=== PATIENT | male | born 1940 | race Caucasian/White ===

== ENCOUNTER → 2020-02-12 12:18 | Outpatient (CLI) | payer MEDICARE, OTHER | END | disposition home or self-care (01) | LOC: D.US 12:18 | PROVIDERS: ATTEND Internal Medicine Cardiovascular Disease | DX: I65.23 Occlusion and stenosis of bilateral carotid arteries (principal) ==

== ENCOUNTER 2020-02-20 08:00 | Outpatient (CLI) | payer MEDICARE, OTHER ==
[2020-02-20] MEDS ORDERED: SYNTHROID50 MCG PO (10:07)
[2020-02-20] MEDS ORDERED: BETAPACE 80 MG80 MG PO (10:07)
[2020-02-20] MEDS ORDERED: PRAVASTATIN SOD10 MG PO (10:07)
[2020-02-20] MEDS ORDERED: PROSCAR5 MG PO (10:08)
[2020-02-20] MEDS ORDERED: INCRUSE ELLI62.5 MCG INH (10:08)
[2020-02-20] MEDS ORDERED: KENALOG 0.1 % 115 GM TOPICAL (10:08)
[2020-02-20] MEDS ORDERED: PLAVIX75 MG PO (10:09)
[2020-02-20] MEDS ORDERED: SYMBICORT 16010.2 GM INH (10:09)
[2020-02-20] MEDS ORDERED: ZESTRIL10 MG PO (10:09)
[2020-02-20] MEDS ORDERED: LASIX20 MG PO (10:10)
[2020-02-20 12:15] LABS: ALBUMIN 3.2 g/dL (3.4-5.0); ANION GAP 7.7 mmol/L (8-16); BILIRUBIN - TOTAL 1.28 mg/dL (0.2-1.3); CALCIUM 9.3 mg/dL (8.5-10.1); CREATININE - SERUM 1.2 mg/dL (0.6-1.3); POTASSIUM - SERUM 4.7 mmol/L (3.5-5.1); PROTEIN - SERUM 8.2 g/dL (6.4-8.2)
[2020-02-20 12:21] LABS: APTT 35.4 SECONDS (22.8-39.4); INR 1.09 (0.85-1.17); PROTIME 14.1 SECONDS (11.6-15.0)
[2020-02-20 12:28] LABS: HEMATOCRIT 41.7 % (42.0-54.0); HEMOGLOBIN 13.7 g/dL (13.5-17.5); MCH 32.5 pg (26.0-34.0); MCHC 32.9 g/dL (31.0-37.0); MCV 98.8 fL (80.0-100.0); RBC 4.22 10x6/uL (4.20-6.10); RDW 14.1 % (11.5-14.5); WBC 8.4 10x3/uL (4.8-10.8)
[2020-02-20 13:11] LABS: KETONE NEGATIVE (NEGATIVE); NITRITE NEGATIVE (NEGATIVE)
[2020-02-20 13:12] LABS: BACTERIA FEW /HPF (NONE SEEN); BILIRUBIN NEGATIVE (NEGATIVE); EPITHELIAL CELLS OCC /hpf (0-5); UROBILINOGEN 8 mg/dL (< 2); WHITE CELLS - URINE RARE HPF (0-1)
== END 2020-02-20 08:01 | disposition home or self-care (01) ==
LOC: D.PAN 08:00 → EDSTATUS 02-24 11:00 → D.SDCHOLD 02-24 11:00
PROVIDERS: ATTEND Thoracic Surgery (Cardiothoracic Vascular Surgery)
DX: R91.1 Solitary pulmonary nodule (principal)

== ENCOUNTER 2020-02-28 12:19 | Inpatient (IN) | payer MEDICARE, OTHER ==
[~2020-02-28] VITALS: Ht 188 cm; Wt 116.0 kg
[~2020-02-28 12:19] MED LIST: BETAPACE 80 MG80 MG PO; INCRUSE ELLI62.5 MCG INH; KENALOG 0.1 % 115 GM TOPICAL; LASIX20 MG PO; PLAVIX75 MG PO; PRAVASTATIN SOD10 MG PO; PROSCAR5 MG PO; SYMBICORT 16010.2 GM INH; SYNTHROID50 MCG PO; ZESTRIL10 MG PO
[2020-03-02 09:55] VITALS: BP 132/80; BMI 34.1
--- NOTE | 2020-03-02 10:40 | NUR ---
SPOKE WITH DR. CASANDRA LANDAVERDE'S NURSE, PLAN IS TO RESCHEDULE SURGERY FOR MONDAY AND ADMIT TO CVICU TODAY.
--- NOTE | 2020-03-02 12:35 | NUR ---
1230 REG DIET SERVED, WARM BLANKET FOR COMFORT PROVIDED.
[2020-03-02 13:09] LABS: BASOPHILS 0.4 % (0-2); EOSINOPHILS 4.5 % (0-7); HEMATOCRIT 38.4 % (42.0-54.0); HEMOGLOBIN 12.8 g/dL (13.5-17.5); IMMATURE GRANULOCYTES 0.1 % (0-5); LYMPHOCYTES 17.1 % (15-50); MCH 32.7 pg (26.0-34.0); MCHC 33.3 g/dL (31.0-37.0); MCV 98.2 fL (80.0-100.0); MEAN PLATELET VOLUME 10.9 fL (7.4-10.4); MONOCYTES 9.1 % (2-11); NEUTROPHILS 68.8 % (40-80); RBC 3.91 10x6/uL (4.20-6.10); RDW 14.1 % (11.5-14.5); WBC 7.3 10x3/uL (4.8-10.8)
[2020-03-02 13:26] LABS: PLATELET COUNT 103 10x3/uL (130-400)
[2020-03-02 13:45] LABS: ANION GAP 11.5 mmol/L (8-16); BILIRUBIN - TOTAL 1.41 mg/dL (0.2-1.3); CALCIUM 9.2 mg/dL (8.5-10.1); CARBON DIOXIDE 27.7 mmol/L (21.0-32.0); CREATININE - SERUM 1.4 mg/dL (0.6-1.3); POTASSIUM - SERUM 4.2 mmol/L (3.5-5.1); PROTEIN - SERUM 7.2 g/dL (6.4-8.2)
--- NOTE | 2020-03-02 14:36 | NUR ---
1430 ROOM CHECK, PT ATE 100% LUNCH WITH 240CC TEA CONCOUMED. STATES HAS VOIDED TWICE SINCE THIS MORNING.
--- NOTE | 2020-03-02 16:44 | NUR ---
6280 SUPPER TRAY SERVED.
--- NOTE | 2020-03-02 18:40 | NUR ---
PATIENT TRANSFERRED BY WHEELCHAIR TO CVICU, ROOM 04, BY WHEELCHAIR, IN STABLE CONDITION. PATIENT AWAKE, ALERT, ON O2. DENIES COMPLAINTS
[2020-03-02 21:00] VITALS: BP 114/77
[2020-03-02 22:00] VITALS: BP 117/81
[2020-03-02 23:00] VITALS: BP 109/70
[2020-03-02 23:54] LABS: INR 1.26 (0.85-1.17); PROTIME 15.7 SECONDS (11.6-15.0)
[2020-03-03] VITALS (15 sets, daily range): BP systolic 93–117; BP diastolic 46–77; Ht 188 cm; Wt 116.0 kg
[2020-03-03 05:07] LABS: BASOPHILS 0.2 % (0-2); HEMATOCRIT 36.3 % (42.0-54.0); IMMATURE GRANULOCYTES 1.4 % (0-5); LYMPHOCYTES 10.2 % (15-50); MCH 32.3 pg (26.0-34.0); MCHC 33.1 g/dL (31.0-37.0); MCV 97.6 fL (80.0-100.0); MEAN PLATELET VOLUME 11.4 fL (7.4-10.4); NEUTROPHILS 84.2 % (40-80); RBC 3.72 10x6/uL (4.20-6.10); RDW 13.9 % (11.5-14.5)
[2020-03-03 05:20] LABS: WBC 4.9 10x3/uL (4.8-10.8)
[2020-03-03 05:22] LABS: PLATELET ESTIMATE DECREASED
[2020-03-03 05:29] LABS: ALBUMIN 2.7 g/dL (3.4-5.0); ANION GAP 10.3 mmol/L (8-16); BILIRUBIN - TOTAL 1.05 mg/dL (0.2-1.3); CALCIUM 9.1 mg/dL (8.5-10.1); CARBON DIOXIDE 26.5 mmol/L (21.0-32.0); CREATININE - SERUM 1.4 mg/dL (0.6-1.3); POTASSIUM - SERUM 4.8 mmol/L (3.5-5.1); PROTEIN - SERUM 7.1 g/dL (6.4-8.2)
[2020-03-03 10:34] LABS: THYROID STIMULATING HORMONE 0.6 uIU/mL (0.36-3.74)
[2020-03-03 10:54] LABS: PLATELET COUNT 97 10x3/uL (130-400)
--- NOTE | 2020-03-03 11:01 | NUR ---
0700REPORT RECIEVED AND CARE ASSUMED OF PATIENT.. SEE FLOW SHEET FOR SHIFT ASSESMENT FINDINGS.. 0800 PT IS SLEEPING 0900 IN TO SEE PATIENT AND ASSIST PATIENT WITH [facility] MEDS GIVEN 0915 DR VALENTE HERE UDPATE IS GIVEN.. 0930 LAB IN TO DRAW BLLOD.. 1030 GONE FROM BEDSIDE
[2020-03-04] VITALS (28 sets, daily range): BP systolic 81–135; BP diastolic 42–82
[2020-03-04 05:13] LABS: BASOPHILS 0.1 % (0-2); EOSINOPHILS 0.6 % (0-7); HEMATOCRIT 34.2 % (42.0-54.0); HEMOGLOBIN 11.3 g/dL (13.5-17.5); IMMATURE GRANULOCYTES 0.2 % (0-5); LYMPHOCYTES 12.1 % (15-50); MCH 31.7 pg (26.0-34.0); MCV 95.8 fL (80.0-100.0); MEAN PLATELET VOLUME 11.4 fL (7.4-10.4); MONOCYTES 10.1 % (2-11); NEUTROPHILS 76.9 % (40-80); PLATELET COUNT 104 10x3/uL (130-400); RBC 3.57 10x6/uL (4.20-6.10); RDW 13.7 % (11.5-14.5)
--- NOTE | 2020-03-04 05:20 | NUR ---
CHG BATH GIVEN. COMPLETE LINEN CHANGE PROVIDED. CALL LIGHT IN REACH. WILL CONTINUE TO OBSERVE.
[2020-03-04 05:31] LABS: WBC 8.8 10x3/uL (4.8-10.8)
[2020-03-04 06:00] LABS: ALBUMIN 2.5 g/dL (3.4-5.0); ANION GAP 7.9 mmol/L (8-16); BILIRUBIN - TOTAL 1.1 mg/dL (0.2-1.3); CALCIUM 8.6 mg/dL (8.5-10.1); CARBON DIOXIDE 27.1 mmol/L (21.0-32.0); CREATININE - SERUM 1.2 mg/dL (0.6-1.3); PROTEIN - SERUM 6.5 g/dL (6.4-8.2)
--- NOTE | 2020-03-04 06:30 | NUR ---
PT OFF UNIT TO SURGERY VIA BED WITH SURGERY STAFF. FAMILY LEFT WITH PT. PT PRE-OPED PER ORDERS.
--- NOTE | 2020-03-04 07:30 | NUR ---
Pt not in room at this time.
--- NOTE | 2020-03-04 09:20 | NUR ---
Back from surgery. Opens eyes and follows simple commands. Currently on 8L O2 via simple mask. CT to left lateral side, connected to suction, no air leak noted. Left subclavian cvl in place with nitroglycerin at 16.67mcg/min and plasmolyte at 30ml/hr. Monterroso catheter in place. Right radial chrystal. Temp 97.0. Safety measures in place. Will continue to monitor.
--- NOTE | 2020-03-04 10:38 | NUR ---
Nutrition Follow-up: S/p VATS/bronch this AM. Diet: Clear Liquid -> Diabetic Wt: 261.3# (03/04) Labs noted: Glu 123, Alb 2.5 Meds noted: Humalog, Protonix, electrolyte protocol -ADAT as medically feasible; encourage PO intake and honor food preferences within diet restrictions. -Monitor wt. -RD following.
--- NOTE | 2020-03-04 11:16 | NUR ---
Right radial Jacy mckinley per Dr. Gilliam's order.
--- NOTE | 2020-03-04 15:12 | NUR ---
Pt with eyes closed. Arouses to voice. Reports 0/10 pain at this time. Instructed to use insentive spirometer. Pulls between 750-1000. No further needs at this time. Will continue to monitor.
--- NOTE | 2020-03-04 16:15 | NUR ---
Assisted up to chair. Tolerated well. Family at bedside. Call light in reach. No further needs at this time.
[2020-03-05] VITALS (24 sets, daily range): BP systolic 91–119; BP diastolic 61–83
[2020-03-05 05:50] LABS: BASOPHILS 0.2 % (0-2); EOSINOPHILS 1.9 % (0-7); HEMATOCRIT 38.2 % (42.0-54.0); HEMOGLOBIN 12.4 g/dL (13.5-17.5); IMMATURE GRANULOCYTES 0.5 % (0-5); LYMPHOCYTES 8.8 % (15-50); MCH 32.3 pg (26.0-34.0); MCHC 32.5 g/dL (31.0-37.0); MEAN PLATELET VOLUME 11.5 fL (7.4-10.4); MONOCYTES 13.7 % (2-11); NEUTROPHILS 74.9 % (40-80); PLATELET COUNT 96 10x3/uL (130-400); RBC 3.84 10x6/uL (4.20-6.10); RDW 14.2 % (11.5-14.5); WBC 8.3 10x3/uL (4.8-10.8)
[2020-03-05 06:13] LABS: MCV 99.5 fL (80.0-100.0)
[2020-03-05 06:14] LABS: ALBUMIN 2.7 g/dL (3.4-5.0); ANION GAP 6.9 mmol/L (8-16); BILIRUBIN - TOTAL 1.12 mg/dL (0.2-1.3); CALCIUM 8.8 mg/dL (8.5-10.1); CARBON DIOXIDE 29.6 mmol/L (21.0-32.0); CREATININE - SERUM 1.3 mg/dL (0.6-1.3); POTASSIUM - SERUM 4.5 mmol/L (3.5-5.1)
--- NOTE | 2020-03-05 09:33 | OP ---
PATIENT NAME: BECKY GAVIRIA MEDICAL RECORD: [id number] :44 LOCATION:[facility] ADMISSION DATE:03/02/20 SURGEON: CHRIS GUAJARDO MD DATE OF OPERATION: 03/04/2020 SURGEON: Chris Guajardo MD PROCEDURE PERFORMED: Left video-assisted thoracoscopic surgery with wedge resection for lung biopsy. PREOPERATIVE DIAGNOSIS: Pulmonary fibrosis. POSTOPERATIVE DIAGNOSIS: Interstitial lung disease. ANESTHESIA: Double lumen general endotracheal anesthesia. ESTIMATED BLOOD LOSS: Minimal. COMPLICATIONS: None. SPECIMENS: Tissue fresh to pathology. CONDITION: Stable. DISPOSITION: CV ICU. OPERATIVE FINDINGS: The most involved area appeared to be the diaphragmatic surface, particularly the costophrenic angle of the left lower lobe anteriorly. This was removed with a wedge resection using thoracoscopic visualization. INDICATIONS: Progressive dyspnea despite medical therapy. PROCEDURE IN DETAIL: The patient was brought to the operating suite. Double lumen general endotracheal anesthesia was placed. Position was confirmed with bronchoscopy. The patient turned to the right lateral decubitus position with appropriate padding. The patient was prepped and draped. The thoracoscopic port was made at approximately the anterior axillary line, visualizing all portions of the lung and possibly some apical adhesions inferiorly. The lung was free from the diaphragm, posterior working port was made. The lung was grasped and another working port was made just below the tip of the scapula where a stapling device was used to divide the wedge resection. The specimen was removed through the chest wall carefully and thorough irrigation was undertaken. Hemostasis was ensured. A chest tube was placed through the anterior working port up to the apex, sutured in place. Lung was reinflated. Wounds were closed with muscle layer, subcutaneous and subcuticular. The patient is stable to CV ICU. TRANSINT:[id number] Voice Confirmation ID: [id number] DOCUMENT ID: [id number] OPERATIVE REPORT [id number] EVERETTEKAMALJITBECKYCHRIS DEWEY MD at 0933 CC: RAY HUGHES MD [id number] DICTATION DATE: 03/04/20 1633 AUTOMATION QA LEAD: 03/05/20 0134 ADM IN [facility] [address] [place] [address]
[2020-03-05 11:49] LABS: PLATELET ESTIMATE DECREASED; ROULEAUX OCC
--- NOTE | 2020-03-05 14:00 | NUR ---
CHANGED CT DRESSING USING STERILE TECHNIQUE. TOLERATED WELL.
[2020-03-06] VITALS (19 sets, daily range): BP systolic 101–122; BP diastolic 56–81
--- NOTE | 2020-03-06 00:10 | MORECARE ---
CASE MANAGEMENT DISCHARGE SUMMARY PATIENT: BECKY GAVIRIA UNIT: [id number] ADM DATE: 03/02/20 AGE: 79 : 42 SEX: M [facility] AUTHOR: EHSAN GARCIA PHYSICIAN: REFERRING PHYSICIAN: HALLE GUAJARDO MD DATE OF SERVICE: 03/06/20 Discharge Plan Patient Name: BECKY GAVIRIA Facility: [facility]:[place] : 1940 Planned Disposition: Home Anticipated Discharge Date: Discharge Date: Expected LOS: Initial Reviewer: [email or web address] Initial Review Date: 03/02/2020 Generated: 03/06/20 1:09 am DCPIA - Discharge Planning Initial Assessment Updated by [email or web address]: Francia Quintero on 03/06/20 12:06 am * Is the patient Alert and Oriented? Yes * How many steps to enter\exit or inside your home? * PCP prachi medina * [facility] * Preadmission Environment Home with Family * ADLs Independent * Equipment Oxygen * Other Equipment home / portable 02 * List name and contact numbers for known caregivers / representatives who currently or will assist patient after discharge: Guera Gaviria - spouse - [phone] * Verbal permission to speak to the caregivers and representatives has been obtained from the patient. Yes * Community resources currently utilized None * Additional services required to return to the preadmission environment? No * Can the patient safely return to the preadmission environment? Yes * Has this patient been hospitalized within the prior 30 days at any hospital? No External Providers [facility] Next Contact Date: Service Request Date: Service Type: Resolution: Reviewer: Comments: Patient Name: BECKY GAVIRIA Page [phone] at 0010 All edits/amendments must be made on the electronic document DICTATION DATE: 03/06/209 BEEF GRADER: SALVADOR 03/06/209 RPT#: [id number] DC DATE: STATUS: ADM IN [facility] [address] [place] [address] END OF REPORT
--- NOTE | 2020-03-06 00:16 | MORECARE ---
CASE MANAGEMENT DISCHARGE SUMMARY PATIENT: BECKY GAVIRIA UNIT: [id number] ADM DATE: 03/02/20 AGE: 79 : 42 SEX: M ROOM/BED: D[facility] AUTHOR: RADHA,DOC PHYSICIAN: REFERRING PHYSICIAN: HALLE GUAJARDO MD DATE OF SERVICE: 03/06/20 Discharge Plan Patient Name: BECKY GAVIRIA Facility: [facility]:[place] : 1940 Planned Disposition: Home Anticipated Discharge Date: Discharge Date: Expected LOS: Initial Reviewer: [email or web address] Initial Review Date: 03/02/2020 Generated: 03/06/20 1:16 am Comments DCP- Discharge Planning Updated by [email or web address]: Francia Quintero on 03/05/20 11:[address] Patient Name: BECKY GAVIRIA Admission Status: Elective Accout number: [id number] Admission Date: 03-02-2020 : 1940 Admission Diagnosis:INTERSTITIAL PULMONARY DISEASE, UNSPECIFIED Attending: HALLE GUAJARDO Current LOS: 4 Anticipated DC Date: Planned Disposition: Home Primary Insurance: MEDICARE A & B Discharge Planning Comments: CM met with patient to complete initial dc planning assessment. CM educated patient on the CM role and verbal consent given by patient to complete assessment. Patient lives at home with family. Patient is independent. At discharge patient plans to return home and feels this is a safe discharge. CM discussed availability of home health, rehab services, and medical equipment. Patient has home / portable 02 with [facility]. Patient wanting Nebulizer and Rollator. MARTHA completed. CM called and spoke with Gabriel @ [facility] and faxed order. Gabriel stated that she has already received order for DuoNeb. Gabriel stated to let her know when patient is going to discharge. Patient will have family to transport home. Patient denied known discharge needs at this time. CM will continue to follow and will assist as needed with dc plans/needs. Account Development Representative: Francia Quintero DCPIA - Discharge Planning Initial Assessment Updated by [email or web address]: Francia Quintero on 03/06/20 12:06 am * Is the patient Alert and Oriented? Yes * How many steps to enter\exit or inside your home? * PCP prachi medina * [facility] * Preadmission Environment Home with Family * ADLs Independent * Equipment Oxygen * Other Equipment home / portable 02 * List name and contact numbers for known caregivers / representatives who currently or will assist patient after discharge: Guera Gaviria - spouse - [phone] * Verbal permission to speak to the caregivers and representatives has been obtained from the patient. Yes * Community resources currently utilized None * Additional services required to return to the preadmission environment? No * Can the patient safely return to the preadmission environment? Yes * Has this patient been hospitalized within the prior 30 days at any hospital? No Last DP export: 03/05/20 11:10 p Patient Name: BECKY GAVIRIA Page [id number] at 0016 All edits/amendments must be made on the electronic document DICTATION DATE: 03/06/2015 FORESTRY AIDE: SALVADOR 03/06/2015 RPT#: [id number] DC DATE: STATUS: ADM IN [facility] [address] [place] [address] END OF REPORT
[2020-03-06 06:15] LABS: HEMATOCRIT 37.3 % (42.0-54.0); HEMOGLOBIN 12.1 g/dL (13.5-17.5); MCH 32.4 pg (26.0-34.0); MCHC 32.4 g/dL (31.0-37.0); MCV 99.7 fL (80.0-100.0); MEAN PLATELET VOLUME 11.4 fL (7.4-10.4); PLATELET COUNT 91 10x3/uL (130-400); RBC 3.74 10x6/uL (4.20-6.10); WBC 9.3 10x3/uL (4.8-10.8)
[2020-03-06 06:31] LABS: ALBUMIN 2.5 g/dL (3.4-5.0); ANION GAP 4.5 mmol/L (8-16); BILIRUBIN - TOTAL 0.95 mg/dL (0.2-1.3); CALCIUM 8.7 mg/dL (8.5-10.1); CARBON DIOXIDE 31.9 mmol/L (21.0-32.0); CREATININE - SERUM 1.2 mg/dL (0.6-1.3); POTASSIUM - SERUM 4.4 mmol/L (3.5-5.1); PROTEIN - SERUM 6.7 g/dL (6.4-8.2)
[2020-03-06 06:51] LABS: PLATELET ESTIMATE NORMAL
--- NOTE | 2020-03-06 07:20 | NUR ---
Shift report received. Pt sitting up in chair. Denies having pain at this time. CT X 1 to left lateral chest to water seal, serosanguinous drainage noted. On 3L O2 via NC. No fever noted. Left sub cvl saline locked. LUCERO hose on bilateral LE. Safety measures in place. Call light in reach. Will continue to monitor.
[2020-03-06] MEDS ORDERED: SINGULAIR10 MG PO (09:19)
[2020-03-06] MEDS ORDERED: MUCINEX DM ER1 EAC1 PO (09:19)
[2020-03-06 09:37] LABS: BASOPHILS 0.1 % (0-2); EOSINOPHILS 1.7 % (0-7); HEMATOCRIT 40.1 % (42.0-54.0); HEMOGLOBIN 13.2 g/dL (13.5-17.5); IMMATURE GRANULOCYTES 0.3 % (0-5); LYMPHOCYTES 6.5 % (15-50); MCH 32.9 pg (26.0-34.0); MCHC 32.9 g/dL (31.0-37.0); MEAN PLATELET VOLUME 11.5 fL (7.4-10.4); MONOCYTES 10.9 % (2-11); NEUTROPHILS 80.5 % (40-80); PLATELET COUNT 109 10x3/uL (130-400); RBC 4.01 10x6/uL (4.20-6.10); RDW 13.9 % (11.5-14.5)
[2020-03-06 09:38] LABS: WBC 12.1 10x3/uL (4.8-10.8)
--- NOTE | 2020-03-06 09:39 | NUR ---
Ambulated about 60ft with physical therapy. O2 dropped to 77%. Recovered once back in chair. Continues on 3L via nc. Spouse at bedside. Will continue to monitor.
[2020-03-06 09:55] LABS: ALBUMIN 2.7 g/dL (3.4-5.0); ANION GAP 7.4 mmol/L (8-16); BILIRUBIN - TOTAL 1.23 mg/dL (0.2-1.3); CALCIUM 9.1 mg/dL (8.5-10.1); CARBON DIOXIDE 30.4 mmol/L (21.0-32.0); CREATININE - SERUM 1.3 mg/dL (0.6-1.3); POTASSIUM - SERUM 4.8 mmol/L (3.5-5.1); PROTEIN - SERUM 7.4 g/dL (6.4-8.2)
--- NOTE | 2020-03-06 10:21 | NUR ---
CT connected to suction per Dr. Gilliam's order.
--- NOTE | 2020-03-06 13:00 | NUR ---
Appears asleep in chair. Ate about 20% of lunch. VSS. Call light in reach. Will continue to monitor.
--- NOTE | 2020-03-06 13:06 | NUR ---
NUTRITION F/U PT UP IN ROOM, FAMILY AT BEDSIDE. REPORTS NOT BEING HUNGRY AT LUNCH TODAY. DID EAT PUDDING. WILL CONTINUE TO PROVIDE DIABETIC DIET, MONITOR PO INTAKE. RD FOLLOWING
--- NOTE | 2020-03-06 15:00 | NUR ---
Resting comfortably in chair. VSS. Denies having pain at this time. CT x 1 to 20cm suction. No fever noted. Will continue to monitor.
--- NOTE | 2020-03-06 18:00 | NUR ---
Ambulated back to bed. Call light in reach. CT continues to 20cm suction. No further needs at this time.
[2020-03-07] VITALS (23 sets, daily range): BP systolic 101–127; BP diastolic 61–82
[2020-03-07 05:46] LABS: BASOPHILS 0 % (0-2); HEMATOCRIT 35.2 % (42.0-54.0); HEMOGLOBIN 11.5 g/dL (13.5-17.5); IMMATURE GRANULOCYTES 0.5 % (0-5); LYMPHOCYTES 11.2 % (15-50); MCH 32.1 pg (26.0-34.0); MCHC 32.7 g/dL (31.0-37.0); MCV 98.3 fL (80.0-100.0); MEAN PLATELET VOLUME 11.4 fL (7.4-10.4); MONOCYTES 10.4 % (2-11); NEUTROPHILS 74.9 % (40-80); PLATELET COUNT 97 10x3/uL (130-400); RBC 3.58 10x6/uL (4.20-6.10); RDW 13.7 % (11.5-14.5)
[2020-03-07 05:56] LABS: WBC 8.4 10x3/uL (4.8-10.8)
[2020-03-07 06:07] LABS: ALBUMIN 2.4 g/dL (3.4-5.0); ANION GAP 5.5 mmol/L (8-16); BILIRUBIN - TOTAL 1.34 mg/dL (0.2-1.3); CALCIUM 8.8 mg/dL (8.5-10.1); CREATININE - SERUM 1.2 mg/dL (0.6-1.3); POTASSIUM - SERUM 4.5 mmol/L (3.5-5.1); PROTEIN - SERUM 6.5 g/dL (6.4-8.2)
--- NOTE | 2020-03-07 08:44 | NUR ---
Assisted up to chair. Tolerated well. CT to left side on 20cm suction, serous drainage noted. On 2L O2 via nc. Dressing to left upper back c/d/i. LUCERO'S on bilateral LE. SCD's off at this time. Call light in reach. Urinal in reach. Meal tray set up. Will continue to monitor.
--- NOTE | 2020-03-07 13:30 | NUR ---
Ambulated to bathroom. No bm at this time. Assisted back to bed. Denies further needs at this time. Left side chest tube remains in place. will continue to monitor.
--- NOTE | 2020-03-07 19:15 | NUR ---
PT REC'D TO CARE, MONITORS/ALARMS ON. AT BS. SEE TRACK OILER. C/L IN REACH.
--- NOTE | 2020-03-07 21:30 | NUR ---
L CT DSG CHANGED PER MD ORDER. PT ASSISTED UP TO CHAIR X 1 ASSIST FOR BATH AND PM CARE. HAIR WASHED. GOWN AND LINENS CHANGED. ORAL CARE DONE. PT REMAINS UP IN CHAIR. ALARMS ON AND C/L IN REACH.
--- NOTE | 2020-03-07 22:45 | NUR ---
PT ASSISTED BACK TO BED. ALARMS ON AND C/L IN REACH.
[2020-03-08] VITALS (24 sets, daily range): BP systolic 107–132; BP diastolic 63–90
[2020-03-08 06:20] LABS: BASOPHILS 0.1 % (0-2); EOSINOPHILS 4.8 % (0-7); HEMATOCRIT 34.9 % (42.0-54.0); HEMOGLOBIN 11.6 g/dL (13.5-17.5); IMMATURE GRANULOCYTES 0.3 % (0-5); MCH 32.6 pg (26.0-34.0); MCHC 33.2 g/dL (31.0-37.0); MEAN PLATELET VOLUME 11.1 fL (7.4-10.4); MONOCYTES 12.7 % (2-11); NEUTROPHILS 66.1 % (40-80); PLATELET COUNT 91 10x3/uL (130-400); RBC 3.56 10x6/uL (4.20-6.10); RDW 13.8 % (11.5-14.5); WBC 6.9 10x3/uL (4.8-10.8)
[2020-03-08 06:32] LABS: ALBUMIN 2.3 g/dL (3.4-5.0); ALKALINE PHOSPHATASE 54 U/L (30-120); ALT (SGPT) 22 U/L (10-68); CALC OSMOLALITY 279 mosm/kg (275-300); CALCIUM 8.9 mg/dL (8.5-10.1); CARBON DIOXIDE 32.3 mmol/L (21.0-32.0); CHLORIDE - SERUM 105 mmol/L (98-107); GLUCOSE 107 mg/dL (74-106); POTASSIUM - SERUM 4.3 mmol/L (3.5-5.1); PROTEIN - SERUM 6.4 g/dL (6.4-8.2); SODIUM 138 mmol/L (136-145); UREA NITROGEN 24 mg/dL (7-18); eGFR NON AFRICAN AMERICAN 77 mL/min (90-120)
[2020-03-08 06:49] LABS: PLATELET ESTIMATE DECREASED
--- NOTE | 2020-03-08 07:30 | NUR ---
PT SITTING UP IN CHAIR, SANDRA KEARNS SERVED, NO NEEDS VOICED AT THIS TIME, CALL LIGHT IN REACH, WILL MONITOR
--- NOTE | 2020-03-08 11:00 | NUR ---
assisted pt up to toilet and back to chair, tolerated well, call light in reach, will monitor
--- NOTE | 2020-03-08 11:35 | NUR ---
DR GUAJARDO HERE SEEING PATIENT
--- NOTE | 2020-03-08 12:30 | NUR ---
CHEST TUBE PUT TO WATER SEAL PER DR GUAJARDO
--- NOTE | 2020-03-08 13:45 | NUR ---
PT UP AMBULATING IN HALLS WITH THERAPY
--- NOTE | 2020-03-08 17:12 | NUR ---
dinner tray served, pt sitting up eating, at bedside, will monitor
--- NOTE | 2020-03-08 21:28 | NUR ---
PT SITTING UP IN CHAIR, NO ACUTE DISTRESS NOTED. WILL CONTINUE TO MONITOR.
[2020-03-09] VITALS (25 sets, daily range): BP systolic 101–130; BP diastolic 64–95
[2020-03-09 05:49] LABS: BASOPHILS 0.5 % (0-2); EOSINOPHILS 6.1 % (0-7); HEMATOCRIT 35.9 % (42.0-54.0); HEMOGLOBIN 11.6 g/dL (13.5-17.5); IMMATURE GRANULOCYTES 0.3 % (0-5); LYMPHOCYTES 15.2 % (15-50); MCH 31.7 pg (26.0-34.0); MCHC 32.3 g/dL (31.0-37.0); MCV 98.1 fL (80.0-100.0); NEUTROPHILS 61.9 % (40-80); PLATELET COUNT 105 10x3/uL (130-400); RBC 3.66 10x6/uL (4.20-6.10); RDW 13.8 % (11.5-14.5); WBC 6.4 10x3/uL (4.8-10.8)
[2020-03-09 06:10] LABS: ALBUMIN 2.3 g/dL (3.4-5.0); ANION GAP 5.1 mmol/L (8-16); BILIRUBIN - TOTAL 1.34 mg/dL (0.2-1.3); CALCIUM 8.8 mg/dL (8.5-10.1); CARBON DIOXIDE 30.9 mmol/L (21.0-32.0); CREATININE - SERUM 1.1 mg/dL (0.6-1.3); MAGNESIUM - SERUM 1.7 mg/dL (1.8-2.4); PHOSPHOROUS 2.6 mg/dL (2.5-4.9); PROTEIN - SERUM 6.4 g/dL (6.4-8.2)
--- NOTE | 2020-03-09 07:30 | NUR ---
pt sitting up in chair, breakfast tray served, denies needs or pain at this time, call light in reach, will monitor
--- NOTE | 2020-03-09 09:15 | NUR ---
FAMILY AT BEDSIDE
--- NOTE | 2020-03-09 10:10 | NUR ---
PT UP TO TOILET AND BACK TO BED, TOLERATED WELL, AT BEDSIDE, CALL LIGHT IN REACH, WILL MONITOR
--- NOTE | 2020-03-09 11:09 | NUR ---
Nutrition Follow-up: POD 5 VATS. Noted plans to d/c soon. Diet: Diabetic PO intake: 50-100% Wt: 260.1# (03/09) Labs noted: Na 135, Mg 1.7, Alb 2.3 Meds noted: Senokot, Humalog, Protonix, electrolyte protocol -RD following.
--- NOTE | 2020-03-09 11:30 | NUR ---
DR ANGELO HERE SEEING PATIENT
--- NOTE | 2020-03-09 12:10 | NUR ---
LUNCH TRAY SERVED, SITTING UP IN CHAIR
--- NOTE | 2020-03-09 13:00 | NUR ---
assisted pt back to bed, tolerated well, call light in reach, will monitor
--- NOTE | 2020-03-09 15:10 | NUR ---
DR. GUAJARDO AT BEDSIDE, CHEST TUBE PULLED, PT TOLERATED WELL, DRESSING IN PLACE, CDI, NO NEEDS VOICED AT THIS TIME, CALL LIGHT IN REACH, WILL MONITOR
--- NOTE | 2020-03-09 17:00 | NUR ---
dinner tray served, pt sitting up in bed feeding self, at bedside
[2020-03-10] VITALS (13 sets, daily range): BP systolic 106–133; BP diastolic 65–88
[2020-03-10 05:53] LABS: BASOPHILS 0.3 % (0-2); EOSINOPHILS 6.2 % (0-7); HEMATOCRIT 36.6 % (42.0-54.0); IMMATURE GRANULOCYTES 0.4 % (0-5); LYMPHOCYTES 13.4 % (15-50); MCH 32.1 pg (26.0-34.0); MCHC 32.8 g/dL (31.0-37.0); MCV 97.9 fL (80.0-100.0); MEAN PLATELET VOLUME 11.3 fL (7.4-10.4); MONOCYTES 14.7 % (2-11); PLATELET COUNT 112 10x3/uL (130-400); RBC 3.74 10x6/uL (4.20-6.10); RDW 13.6 % (11.5-14.5)
[2020-03-10 06:16] LABS: ALBUMIN 2.3 g/dL (3.4-5.0); ANION GAP 7.1 mmol/L (8-16); BILIRUBIN - TOTAL 1.08 mg/dL (0.2-1.3); CALCIUM 8.8 mg/dL (8.5-10.1); CARBON DIOXIDE 32.3 mmol/L (21.0-32.0); CREATININE - SERUM 1.1 mg/dL (0.6-1.3); POTASSIUM - SERUM 4.4 mmol/L (3.5-5.1); PROTEIN - SERUM 6.7 g/dL (6.4-8.2)
--- NOTE | 2020-03-10 07:45 | NUR ---
laying in bed resting comfortable, denies pain at this time, breakfast tray served, call light in reach, will monitor
--- NOTE | 2020-03-10 09:30 | NUR ---
pt ambulating with therapy at this time
--- NOTE | 2020-03-10 11:00 | NUR ---
CVL DC'D AT THIS TIME, CATHETER INTACT
[2020-03-10] MEDS ORDERED: ATROVENT 0.02%2.5 ML UPD (11:01)
--- NOTE | 2020-03-10 12:00 | NUR ---
PT DISCHARGED HOME VIA WHEELCHAIR AT THIS TIME WITH HOME O2, DISCHARGE INSTRUCTIONS GIVEN AND MEDICATIONS EXPLAINED, PT VERBALZIES UNDERSTANDING, FOLLOW UP APPTS MADE, DR IVÁN LANDAVERDE EXPLAINED DISCHARGE INSTRUCTIONS , NO DISTRESS NOTED AT THIS TIME
--- NOTE | 2020-03-11 09:14 | MORECARE ---
CASE MANAGEMENT DISCHARGE SUMMARY PATIENT: BECKY GAVIRIA UNIT: [id number] ADM DATE: 03/02/20 AGE: 79 : 42 SEX: M ROOM/BED: D.[facility] AUTHOR: EHSAN GARCIA PHYSICIAN: REFERRING PHYSICIAN: HALLE GUAJARDO MD DATE OF SERVICE: 03/11/20 Discharge Plan Patient Name: BECKY GAVIRIA Facility: [facility]:[place] : 1940 Planned Disposition: Home Anticipated Discharge Date: Discharge Date: 03/10/2020 Expected LOS: Initial Reviewer: [email or web address] Initial Review Date: 03/02/2020 Generated: 03/11/20 10:14 am DCP- Discharge Planning Updated by [email or web address]: Francia Quintero on 03/05/20 11:[address] Patient Name: BECKY GAVIRIA Admission Status: Elective Accout number: [id number] Admission Date: 03-02-2020 : 1940 Admission Diagnosis:INTERSTITIAL PULMONARY DISEASE, UNSPECIFIED Attending: HALLE GUAJARDO Current LOS: 4 Anticipated DC Date: Planned Disposition: Home Primary Insurance: MEDICARE A & B Discharge Planning Comments: CM met with patient to complete initial dc planning assessment. CM educated patient on the CM role and verbal consent given by patient to complete assessment. Patient lives at home with family. Patient is independent. At discharge patient plans to return home and feels this is a safe discharge. CM discussed availability of home health, rehab services, and medical equipment. Patient has home / portable 02 with [facility]. Patient wanting Nebulizer and Rollator. MARTHA completed. CM called and spoke with Gabriel @ [facility] and faxed order. Gabriel stated that she has already received order for DuoNeb. Gabriel stated to let her know when patient is going to discharge. Patient will have family to transport home. Patient denied known discharge needs at this time. CM will continue to follow and will assist as needed with dc plans/needs. Ordnance Truck Installation Mechanic: Francia Quintero DCPIA - Discharge Planning Initial Assessment Updated by [email or web address]: Francia Quintero on 03/06/20 12:06 am * Is the patient Alert and Oriented? Yes * How many steps to enter\exit or inside your home? * PCP prachi medina * [facility] * Preadmission Environment Home with Family * ADLs Independent * Equipment Oxygen * Other Equipment home / portable 02 * List name and contact numbers for known caregivers / representatives who currently or will assist patient after discharge: Guera Gaviria - spouse - [phone] * Verbal permission to speak to the caregivers and representatives has been obtained from the patient. Yes * Community resources currently utilized None * Additional services required to return to the preadmission environment? No * Can the patient safely return to the preadmission environment? Yes * Has this patient been hospitalized within the prior 30 days at any hospital? No Last DP export: 03/05/20 11:16 p Patient Name: BECKY GAVIRIA Page [phone] at 0914 All edits/amendments must be made on the electronic document DICTATION DATE: 03/11/20913 FINANCIAL PLANNING ADVISER: SALVADOR 03/11/20913 RPT#: [id number] DC DATE:03/10/20 STATUS: DIS IN [facility] [address] [place] [address] END OF REPORT
--- NOTE | 2020-03-11 10:07 | MORECARE ---
CASE MANAGEMENT DISCHARGE SUMMARY PATIENT: BECKY GAVIRIA UNIT: [id number] ADM DATE: 03/02/20 AGE: 79 : 42 SEX: M ROOM/BED: D[facility] AUTHOR: EHSAN GARCIA PHYSICIAN: REFERRING PHYSICIAN: HALLE GUAJARDO MD DATE OF SERVICE: 03/11/20 Discharge Plan Patient Name: BECKY GAVIRIA Facility: [facility]:[place] : 1940 Planned Disposition: Home Anticipated Discharge Date: Discharge Date: 03/10/2020 Expected LOS: Initial Reviewer: [email or web address] Initial Review Date: 03/02/2020 Generated: 03/11/20 11:06 am Comments DCP- Discharge Planning Updated by [email or web address]: Romy Gutierrez on 03/11/20 8:[address] Patient Name: BECKY GAVIRIA Encounter No: [id number] : 1940 Primary Insurance: MEDICARE A & B Anticipated DC Date: Planned Disposition: Home External Planned Provider: : Late Entry for 03/09/20 ~ 13:45. DCP follow-up note: Patient in agreement with discharge plan. No changes to plan. Rollator and Nebulizer in patient room. CM spoke with Gabriel from [facility] that stated Neb meds were shipped to patient's and should be there waiting for him. Patient signed DC IMM. Copy on chart. Case management will follow and assist as needed. Romy Gutierrez DCP- Discharge Planning Updated by [email or web address]: Francia Quintero on 03/05/20 11:[address] Patient Name: BECKY GAVIRIA Admission Status: Elective Accout number: [id number] Admission Date: 03-02-2020 : 1940 Admission Diagnosis:INTERSTITIAL PULMONARY DISEASE, UNSPECIFIED Attending: HALLE GUAJARDO Current LOS: 4 Anticipated DC Date: Planned Disposition: Home Primary Insurance: MEDICARE A & B Discharge Planning Comments: CM met with patient to complete initial dc planning assessment. CM educated patient on the CM role and verbal consent given by patient to complete assessment. Patient lives at home with family. Patient is independent. At discharge patient plans to return home and feels this is a safe discharge. CM discussed availability of home health, rehab services, and medical equipment. Patient has home / portable 02 with [facility]. Patient wanting Nebulizer and Rollator. MARTHA completed. CM called and spoke with Gabriel @ [facility] and faxed order. Gabriel stated that she has already received order for DuoNeb. Gabriel stated to let her know when patient is going to discharge. Patient will have family to transport home. Patient denied known discharge needs at this time. CM will continue to follow and will assist as needed with dc plans/needs. Medical Scribe: Francia Quintero DCPIA - Discharge Planning Initial Assessment Updated by [email or web address]: Francia Quintero on 03/06/20 12:06 am * Is the patient Alert and Oriented? Yes * How many steps to enter\exit or inside your home? * PCP prachi medina * [facility] * Preadmission Environment Home with Family * ADLs Independent * Equipment Oxygen * Other Equipment home / portable 02 * List name and contact numbers for known caregivers / representatives who currently or will assist patient after discharge: Guera Gaviria - spouse - [phone] * Verbal permission to speak to the caregivers and representatives has been obtained from the patient. Yes * Community resources currently utilized None * Additional services required to return to the preadmission environment? No * Can the patient safely return to the preadmission environment? Yes * Has this patient been hospitalized within the prior 30 days at any hospital? No Coverage Notice Reviewer: [id number] Elijah Gutierrez Notice Issued Date-Time: 03/09/2020 13:45 Notice Type: IM Discharge Notice Notice Delivered To: Patient Relationship to Patient: Self Feed Crusher Operator Name: Delivery Method: HAND - Hand Delivered Franci Days: Prior Verbal Notification: Recipient Understood Notice: Yes Recipient Signature: Yes Med Rec Note Co-signed by Attending: Coverage Notice Comment: Last DP export: 03/11/20 8:14 a Patient Name: BECKY GAVIRIA Page [id number] at 1007 All edits/amendments must be made on the electronic document DICTATION DATE: 03/11/20 1006 WATER ATTENDANT: SALVADOR 03/11/20 1006 RPT#: [id number] DC DATE:03/10/20 STATUS: DIS IN [facility] [address] [place] [address] END OF REPORT
== END 2020-03-10 12:00 | disposition home or self-care (01) | DRG 164 ==
LOC: D.CVICU 03-02 07:53 → D.SDCHOLD 03-02 07:53 → D.CVICU 03-02 18:50
PROVIDERS: Family Medicine; Family Medicine Adult Medicine; Internal Medicine Hematology & Oncology; Internal Medicine Pulmonary Disease; ADMIT Thoracic Surgery (Cardiothoracic Vascular Surgery); ATTEND Thoracic Surgery (Cardiothoracic Vascular Surgery)
PROC: 0BTJ4ZZ Resection of Left Lower Lung Lobe, Percutaneous Endoscopic Approach (ICD-10-PCS; principal; 2020-03-04 07:30)
DX: J84.10 Pulmonary fibrosis, unspecified (principal); N17.9 Acute kidney failure, unspecified; G61.0 Guillain-Barre syndrome; I50.42 Chronic combined systolic (congestive) and diastolic (congestive) heart failure; K76.6 Portal hypertension; I48.19 Other persistent atrial fibrillation; J93.9 Pneumothorax, unspecified; J45.909 Unspecified asthma, uncomplicated; D64.9 Anemia, unspecified; K21.9 Gastro-esophageal reflux disease without esophagitis; E03.9 Hypothyroidism, unspecified; K76.0 Fatty (change of) liver, not elsewhere classified; Z99.81 Dependence on supplemental oxygen; M19.90 Unspecified osteoarthritis, unspecified site; G47.33 Obstructive sleep apnea (adult) (pediatric); I27.20 Pulmonary hypertension, unspecified; E11.9 Type 2 diabetes mellitus without complications; K74.60 Unspecified cirrhosis of liver; K86.9 Disease of pancreas, unspecified; N40.0 Benign prostatic hyperplasia without lower urinary tract symptoms; E78.5 Hyperlipidemia, unspecified; J47.9 Bronchiectasis, uncomplicated; I11.0 Hypertensive heart disease with heart failure; D69.6 Thrombocytopenia, unspecified; Z77.090 Contact with and (suspected) exposure to asbestos

== ENCOUNTER → 2020-03-25 09:06 | Outpatient (CLI) | payer MEDICARE, OTHER ==
[2020-03-03 10:09] VITALS: BMI 33.6
[~2020-03-25 09:06] MED LIST changes: +ATROVENT 0.02%2.5 ML UPD; +MUCINEX DM ER1 EAC1 PO; +SINGULAIR10 MG PO
== END | disposition home or self-care (01) ==
LOC: D.RAD 09:06
PROVIDERS: ATTEND Thoracic Surgery (Cardiothoracic Vascular Surgery)
DX: G89.22 Chronic post-thoracotomy pain (principal)

== ENCOUNTER → 2020-08-13 14:29 | Outpatient (CLI) | payer MEDICARE ==
[2020-07-03 14:02] VITALS: BMI 20.4
[~2020-08-13 14:29] MED LIST changes: +CARDIZEM60 MG PO; +MIRALAX17 GM PO
== END | disposition home or self-care (01) ==
LOC: D.RAD 14:29
PROVIDERS: ATTEND Internal Medicine Pulmonary Disease
DX: J45.909 Unspecified asthma, uncomplicated (principal)

== ENCOUNTER → 2020-08-24 08:51 | Outpatient (CLI) | payer MEDICARE ==
[2020-07-03 14:02] VITALS: BMI 20.4
== END | disposition home or self-care (01) ==
LOC: D.RT 08:51
PROVIDERS: ATTEND Internal Medicine Pulmonary Disease
DX: J84.10 Pulmonary fibrosis, unspecified (principal)

== ENCOUNTER 2020-08-24 10:49 | Inpatient (IN) | payer MEDICARE ==
[~2020-08-24] VITALS: Ht 188 cm; Wt 115.5 kg
[2020-08-24 12:39] LABS: BASOPHILS 0.1 % (0-2); EOSINOPHILS 3.6 % (0-7); HEMATOCRIT 39.4 % (42.0-54.0); HEMOGLOBIN 13.2 g/dL (13.5-17.5); IMMATURE GRANULOCYTES 0.3 % (0-5); LYMPHOCYTE ABS# 1.36 10x3/uL (1.32-3.57); LYMPHOCYTES 9.3 % (15-50); MCH 32.5 pg (26.0-34.0); MCHC 33.5 g/dL (31.0-37.0); MEAN PLATELET VOLUME 10.7 fL (7.4-10.4); NEUTROPHIL ABS# 11.51 10x3/uL (1.78-5.38); NEUTROPHILS 78.7 % (40-80); PLATELET COUNT 120 10x3/uL (130-400); RBC 4.06 10x6/uL (4.20-6.10); RDW 14.6 % (11.5-14.5); WBC 14.6 10x3/uL (4.8-10.8)
[2020-08-24 12:49] LABS: CALC OSMOLALITY 288 mosm/kg (275-300); CARBON DIOXIDE 32.5 mmol/L (21.0-32.0); CHLORIDE - SERUM 101 mmol/L (98-107); CREATININE - SERUM 1.2 mg/dL (0.6-1.3); POTASSIUM - SERUM 4.1 mmol/L (3.5-5.1); SODIUM 139 mmol/L (136-145); UREA NITROGEN 21 mg/dL (7-18); eGFR NON AFRICAN AMERICAN 62 mL/min (90-120)
[2020-08-24 12:50] LABS: GLUCOSE 240 mg/dL (74-106)
[2020-08-24 13:04] LABS: ALKALINE PHOSPHATASE 86 U/L (30-120); ALT (SGPT) 49 U/L (10-68); BILIRUBIN - TOTAL 2.19 mg/dL (0.2-1.3); CKMB 0.2 U/L (0.0-3.6); CREATINE KINASE 29 UL (21-232); PRO BNP 51 pg/mL (0-450); PROTEIN - SERUM 7.2 g/dL (6.4-8.2); TROPONIN-I < 0.017 ng/mL (0.000-0.060)
[2020-08-24 13:19] LABS: INR 1.32 (0.85-1.17); PROTIME 15.2 SECONDS (11.6-15.0)
[2020-08-24 13:20] LABS: APTT 29.1 SECONDS (22.8-39.4)
[2020-08-24 13:21] VITALS: BP 115/66
[2020-08-24 13:21] LABS: D-DIMER-QUANTITATIVE 0.81 ug/mLFEU (0.20-0.54)
--- NOTE | 2020-08-24 14:18 | NUR ---
RETURNED FROM CT
[2020-08-24 14:27] VITALS: BP 124/76
--- NOTE | 2020-08-24 16:46 | NUR ---
PT ARIVED ON FLOOR VIA WHEELCHIAR, AMBULATED WITH STANDBY ASSIT TO BED. VANC RUNNING IN I/V WNL. O2 AT 4L
[2020-08-24 17:03] VITALS: BP 131/83; Ht 188 cm; Wt 115.5 kg
--- NOTE | 2020-08-24 17:47 | NUR ---
PT ALERT AND ORIENTED, UP WITH STANDBY ASSIST TO THE RECLINER. PT REPORTS FEELING WEEK AT THE TIME. SITTING UP FOR SUPPER. NO COMPLAINTS OR CONCERNS AT THIS TIME. CL IN REACH. PT BACK IN BED, SRX2, BED ALARM ON AND ACTIVE WNL.
[2020-08-24 20:29] VITALS: BP 129/85
[2020-08-25 00:15] VITALS: BP 126/85
[2020-08-25 03:18] VITALS: BP 133/89
--- NOTE | 2020-08-25 04:57 | NUR ---
Patient appeared to rest well throughout the night, denies pain, he is currently resting in bed with his eyes closed.
[2020-08-25 05:25] LABS: BASOPHILS 0 % (0-2); EOSINOPHILS 0 % (0-7); HEMATOCRIT 37.1 % (42.0-54.0); HEMOGLOBIN 12.3 g/dL (13.5-17.5); IMMATURE GRANULOCYTES 0.4 % (0-5); LYMPHOCYTES 6.5 % (15-50); MCH 32.1 pg (26.0-34.0); MCHC 33.2 g/dL (31.0-37.0); MCV 96.9 fL (80.0-100.0); MEAN PLATELET VOLUME 10.8 fL (7.4-10.4); MONOCYTES 5.6 % (2-11); NEUTROPHIL ABS# 8.08 10x3/uL (1.78-5.38); NEUTROPHILS 87.5 % (40-80); RBC 3.83 10x6/uL (4.20-6.10); RDW 14.3 % (11.5-14.5)
[2020-08-25 05:37] LABS: PLATELET COUNT 84 10x3/uL (130-400); PLATELET ESTIMATE DECREASED; WBC 9.2 10x3/uL (4.8-10.8)
[2020-08-25 05:41] LABS: ALBUMIN 2.6 g/dL (3.4-5.0); ALKALINE PHOSPHATASE 72 U/L (30-120); ALT (SGPT) 38 U/L (10-68); BILIRUBIN - TOTAL 1.01 mg/dL (0.2-1.3); CALC OSMOLALITY 283 mosm/kg (275-300); CALCIUM 8.7 mg/dL (8.5-10.1); CHLORIDE - SERUM 103 mmol/L (98-107); GLUCOSE 208 mg/dL (74-106); MAGNESIUM - SERUM 1.8 mg/dL (1.8-2.4); POTASSIUM - SERUM 4.4 mmol/L (3.5-5.1); PROTEIN - SERUM 6.7 g/dL (6.4-8.2); SODIUM 138 mmol/L (136-145); UREA NITROGEN 19 mg/dL (7-18); eGFR NON AFRICAN AMERICAN 77 mL/min (90-120)
--- NOTE | 2020-08-25 07:53 | NUR ---
AM ROUNDING DONE WITH PATIENT RESTING, AROUSES WHEN TOUCHED. ON 4.5 LITERS NASAL CANNULA. RIGHT FA SEEN WITH SALINE LOCK. ON EP, LABS ARE WNL. BILATERAL SCD'S ARE ON AND IN USE. ON LOVENOX. BED ALARM IS ON. PATIENT IS DNR CODE STATUS. WILL MONITOR FOR ANY NEEDS.
[2020-08-25 08:00] VITALS: BP 130/94
--- NOTE | 2020-08-25 09:57 | NUR ---
PATIENT IS MADE NPO FOR BEDSIDE THORACENTHESIS. PERMITS ARE SIGNED AND I CALLED HIS DAUGHTER OSVALDO.
[2020-08-25 11:00] VITALS: BP 130/83
--- NOTE | 2020-08-25 12:12 | NUR ---
DR ANGELO HERE WITH RESPIRATORY FOR BEDSIDE THORACENTHESIS.
--- NOTE | 2020-08-25 12:32 | NUR ---
DR ANGELO DONE WITH FLUID REMOVAL OF 2100 CC YELLOW FLUID.
--- NOTE | 2020-08-25 13:01 | NUR ---
FSBS 181 INSULIN HELD PER DAUGHTER AND PATIENT NOT DIABETIC, ALSO NPO
[2020-08-25 13:10] LABS: PROTEIN - BODY FLUID 1.1 G/DL
[2020-08-25 15:00] VITALS: BP 128/82
--- NOTE | 2020-08-25 19:10 | NUR ---
RECEIVED SHIFT REPORT FROM DALIA COATES RN, INFORMED PT THAT I WILL BE BACK SHORTLY TO DO ASSESSMENT, PER VERBALIZES UNDERSTANDING, DENIES NEEDS AT THIS TIME
--- NOTE | 2020-08-25 20:45 | NUR ---
ASSESSMENT PER FLOW SHEET, VS OBTAINED PER WAREHOUSE PICKER, SALINE LOCK IN RIGHT FA INTACT WITH NO REDNESS OR EDEMA, TELEMETRY IN PLACE, PT REPORTS FLATUS, NO BM AND USING THE URINAL WITH NO DIFFICULTY, PT INST ON AND DEMONSTRATED I.S. WITH GOOD EFFORT, SCD'S NOTED TO BE OFF, SCD'S CONNTECTED TO PUMP AT THIS TIME AND WORKING PROPERLY, PT DENIES PAIN, REQUESTED AND SERVED FRESH H20, PT DENIES FURTHER NEEDS, FALL PRECAUTIONS IN PLACE
[2020-08-25 21:17] VITALS: BP 112/64
--- NOTE | 2020-08-25 21:47 | NUR ---
PT AWAKE, WATCHING TV, OBTAINED FSBS, INFORMED PT THAT I WILL BE BACK SHORTLY TO ADM MEDS, PT VERBALIZES UNDERSTANDING, REQUESTS FRESH H20 WHEN I RETURN
--- NOTE | 2020-08-25 21:56 | NUR ---
ADM 2100 MEDS PER MD ORDERS, PT REQUESTS NOT TO TAKE BP MED AT THIS TIME, ASKS IF WE CAN SEE WHAT HIS NEXT BP IS, INFORMED PT THAT WILL BE FINE, SERVED FRESH H20 AND SNACK, PT DENIES FURTHER NEEDS
[2020-08-26 01:46] VITALS: BP 103/73
--- NOTE | 2020-08-26 04:30 | NUR ---
PT RESTING WITH EYES CLOSED, RESP QUIET, NO DISTRESS NOTED, LEFT UNDISTURBED AT THIS TIME
[2020-08-26 05:40] VITALS: BP 115/73
[2020-08-26 05:58] LABS: HEMATOCRIT 36.4 % (42.0-54.0); HEMOGLOBIN 12.2 g/dL (13.5-17.5); MCHC 33.5 g/dL (31.0-37.0); MCV 95.5 fL (80.0-100.0); RBC 3.81 10x6/uL (4.20-6.10); RDW 14.1 % (11.5-14.5); WBC 11.3 10x3/uL (4.8-10.8)
[2020-08-26 05:59] LABS: BASOPHILS 0.1 % (0-2); EOSINOPHILS 0 % (0-7); IMMATURE GRANULOCYTES 0.4 % (0-5); LYMPHOCYTE ABS# 0.73 10x3/uL (1.32-3.57); LYMPHOCYTES 6.4 % (15-50); MEAN PLATELET VOLUME 10.6 fL (7.4-10.4); MONOCYTES 6.4 % (2-11); NEUTROPHIL ABS# 9.81 10x3/uL (1.78-5.38); NEUTROPHILS 86.7 % (40-80); PLATELET COUNT 96 10x3/uL (130-400)
--- NOTE | 2020-08-26 06:20 | NUR ---
PT RESTING WITH EYES CLOSED, AROUSES TO SOFT VERBAL STIMULATION, OBTAINED FSBS, ADM 0600 MEDS PO PER MD ORDERS, SEE EMAR, WITH FRESH H20, SNACK SERVED, PT DENIES FURTHER NEEDS
[2020-08-26 06:39] LABS: ALBUMIN 2.4 g/dL (3.4-5.0); ALKALINE PHOSPHATASE 74 U/L (30-120); ALT (SGPT) 38 U/L (10-68); BILIRUBIN - TOTAL 1.03 mg/dL (0.2-1.3); CALC OSMOLALITY 277 mosm/kg (275-300); CALCIUM 8.5 mg/dL (8.5-10.1); CARBON DIOXIDE 30.8 mmol/L (21.0-32.0); CHLORIDE - SERUM 102 mmol/L (98-107); GLUCOSE 214 mg/dL (74-106); MAGNESIUM - SERUM 1.8 mg/dL (1.8-2.4); POTASSIUM - SERUM 4.6 mmol/L (3.5-5.1); PROTEIN - SERUM 6.5 g/dL (6.4-8.2); SODIUM 135 mmol/L (136-145); UREA NITROGEN 17 mg/dL (7-18); eGFR NON AFRICAN AMERICAN 77 mL/min (90-120)
--- NOTE | 2020-08-26 07:00 | NUR ---
SHIFT REPORT TO DAY SHIFT
--- NOTE | 2020-08-26 07:13 | NUR ---
RECEIVE BEDSIDE SHIFT REPORT. RESTING IN BED WITH EYES CLOSED. NO S/S OF DISTRESS PRESENT AT THIS TIME. WILL CONTINUE POC AND SAFETY PRECAUTIONS.
[2020-08-26 07:54] VITALS: BP 116/78
[2020-08-26 11:32] VITALS: BP 124/80
[2020-08-26 14:10] LABS: ACID FAST SMEAR Negative (()); AFB SPECIMEN PROCESSING Concentration (())
[2020-08-26 15:59] VITALS: BP 119/77
[2020-08-27 01:08] VITALS: BP 119/73
[2020-08-27 05:33] VITALS: BP 119/70
[2020-08-27 05:46] LABS: BASOPHILS 0 % (0-2); EOSINOPHILS 1.1 % (0-7); HEMATOCRIT 38.6 % (42.0-54.0); IMMATURE GRANULOCYTES 0.4 % (0-5); LYMPHOCYTE ABS# 1.14 10x3/uL (1.32-3.57); LYMPHOCYTES 11.5 % (15-50); MCH 32.5 pg (26.0-34.0); MCHC 33.7 g/dL (31.0-37.0); MCV 96.5 fL (80.0-100.0); MONOCYTES 10.4 % (2-11); NEUTROPHIL ABS# 7.62 10x3/uL (1.78-5.38); NEUTROPHILS 76.6 % (40-80); PLATELET COUNT 91 10x3/uL (130-400); RDW 14.2 % (11.5-14.5); WBC 9.9 10x3/uL (4.8-10.8)
[2020-08-27 05:51] LABS: PLATELET ESTIMATE DECREASED
[2020-08-27 06:12] LABS: ALBUMIN 2.6 g/dL (3.4-5.0); ALKALINE PHOSPHATASE 70 U/L (30-120); ALT (SGPT) 39 U/L (10-68); BILIRUBIN - TOTAL 1.32 mg/dL (0.2-1.3); CALC OSMOLALITY 278 mosm/kg (275-300); CALCIUM 8.8 mg/dL (8.5-10.1); CARBON DIOXIDE 31.7 mmol/L (21.0-32.0); CHLORIDE - SERUM 102 mmol/L (98-107); MAGNESIUM - SERUM 1.8 mg/dL (1.8-2.4); POTASSIUM - SERUM 4.4 mmol/L (3.5-5.1); PROTEIN - SERUM 6.7 g/dL (6.4-8.2); SODIUM 137 mmol/L (136-145); UREA NITROGEN 21 mg/dL (7-18); eGFR NON AFRICAN AMERICAN 77 mL/min (90-120)
[2020-08-27 06:13] LABS: GLUCOSE 137 mg/dL (74-106)
--- NOTE | 2020-08-27 07:13 | NUR ---
RECEIVE SHIFT REPORT. RESTING IN BED WITH EYES CLOSED. NO S/S OF DISTRESS PRESENT AT THIS TIME. CONTINUE POC AND SAFETY PRECAUTIONS. WILL TRY TO WEAN OXYGEN TODAY.
[2020-08-27 08:18] VITALS: BP 123/81
[2020-08-27 16:11] VITALS: BP 130/63
[2020-08-27 20:00] VITALS: BP 109/64
[2020-08-28 03:20] VITALS: BP 116/66
[2020-08-28 05:33] LABS: BASOPHILS 0.1 % (0-2); EOSINOPHILS 3.1 % (0-7); HEMATOCRIT 39.7 % (42.0-54.0); HEMOGLOBIN 13.1 g/dL (13.5-17.5); IMMATURE GRANULOCYTES 0.5 % (0-5); LYMPHOCYTE ABS# 1.16 10x3/uL (1.32-3.57); LYMPHOCYTES 10.9 % (15-50); MCV 97.1 fL (80.0-100.0); MONOCYTES 11.4 % (2-11); NEUTROPHIL ABS# 7.89 10x3/uL (1.78-5.38); PLATELET COUNT 108 10x3/uL (130-400); RBC 4.09 10x6/uL (4.20-6.10); RDW 14.5 % (11.5-14.5); WBC 10.7 10x3/uL (4.8-10.8)
[2020-08-28 05:45] LABS: ALBUMIN 2.5 g/dL (3.4-5.0); ALKALINE PHOSPHATASE 71 U/L (30-120); ALT (SGPT) 39 U/L (10-68); CALC OSMOLALITY 279 mosm/kg (275-300); CALCIUM 8.9 mg/dL (8.5-10.1); CARBON DIOXIDE 32.3 mmol/L (21.0-32.0); CHLORIDE - SERUM 102 mmol/L (98-107); GLUCOSE 121 mg/dL (74-106); MAGNESIUM - SERUM 1.7 mg/dL (1.8-2.4); POTASSIUM - SERUM 4.4 mmol/L (3.5-5.1); PROTEIN - SERUM 6.5 g/dL (6.4-8.2); SODIUM 138 mmol/L (136-145); UREA NITROGEN 22 mg/dL (7-18); eGFR NON AFRICAN AMERICAN 77 mL/min (90-120)
--- NOTE | 2020-08-28 08:00 | NUR ---
PT RECEIVED AWAKE AND ALERT IN BED. BREATHING UNLABORED.
[2020-08-28 09:25] VITALS: BP 105/74
[2020-08-28] MEDS ORDERED: ADOXA100 MG PO (11:45)
[2020-08-28] MEDS ORDERED: OMNICEF300 MG PO (11:46)
[2020-08-28 12:17] VITALS: BP 100/63
--- NOTE | 2020-08-28 12:51 | MORECARE ---
CASE MANAGEMENT DISCHARGE SUMMARY PATIENT: BECKY GAVIRIA UNIT: [id number] ADM DATE: 08/24/20 AGE: 79 : 42 SEX: M ROOM/BED: D.2112 AUTHOR: EHSAN GRACIA PHYSICIAN: REFERRING PHYSICIAN: SEB HUA MD DATE OF SERVICE: 08/28/20 Case Management Discharge Planning Summary DCP REVIEW SUMMARY ANTICIPATED D/C DATE: EXPECTED LOS : CASE STATUS: DCP Initiated INITIAL REVIEW: 08/28/2020 INITIAL REVIEWER: Kathy Dodson FINAL DISCHARGE DISPOSITION: : FINAL REVIEWER: FINAL REVIEW DATE: DCP Focus Questions & Answers DCP REV -DCP Review Added on: 08/28/20 12:45 pm QUESTION: ANSWER DCP Screen High Risk Factors: : Hosp related to CHF, COPD, DM, End Stage Ds, CVA, CA DCP Evaluation Patient's ability to cope with chronic illness : a. Adequate (0-3 ED visits in 6 mos., adequate financial resources, attends scheduled appts.) Mental health screen: : No mental health history Would patient like to participate in any Care Coordination programs (if applicable): : Not applicable Patient gives permission to discuss discharge plans with: (name, relationship and number) : Cassie Hodges - DTR - [phone] Physical Status: : Independent with ADL's Partial Dependence, assistance required for: : Ambulation / Mobility Baseline cognitive status: : *Oriented to person, place, situation, time and present Family / Caregiver's ability to cope with chronic illness: : a. Adequate (ability to meet patient's medical needs, ensures patient attends medical appts.) Living Arrangements: : Home with Spouse/Significant Other Pharmacy name(s): : [facility] [place] Does Patient have transportation to get home and to follow-up medical appointments when discharged from the hospital? : Yes Comments: : States he and his both drive during the day. His daughter will take him home Equipment in use: : Home Oxygen with Nasal Cannula Equipment in use: : Other Equipment in use: : Shower Chair Equipment in use: : Walker - Rollator Equipment in use: : Walker - Standard Other Equipment comments: : Portable oxygen Equipment agency name and contact information: : [facility] Resources / Services in place: : Home health Patient's current cognitive status: : *Oriented to person, place, situation, time and present Does the patient have the ability to pay for or attain post discharge needs / services? : Yes Is there a likelihood that the patient will require additional services to return to the preadmission environment? : No Results of this evaluation have been discussed with: : Patient DCP Re-evaluation Would patient like to participate in any Care Coordination programs (if applicable): : Not applicable PATIENT: BECKY GAVIRIA ENCOUNTER: [id number] MEDICAL RECORD#: [id number] ADMISSION DATE: 08/24/2020 DISCHARGE DATE: ATTENDING MD: MELITA HUA : AGE: 79 MARITAL STATUS: M DC PLAN ID: [id number] FACILITY: [facility] PRINTED ON: 08/28/20 12:50 CT All edits/amendments must be made on the electronic document DICTATION DATE: 08/28/201249 DRY HEAT ROOM ATTENDANT: SALVADOR 08/28/20 125 RPT#: [id number] DC DATE: STATUS: ADM IN [facility] [address] [place] [address] END OF REPORT
--- NOTE | 2020-08-28 13:04 | MORECARE ---
CASE MANAGEMENT DISCHARGE SUMMARY PATIENT: BECKY GAVIRIA UNIT: [id number] ADM DATE: 08/24/20 AGE: 79 : 42 SEX: M ROOM/BED: D.2112 AUTHOR: RADHA,DOC PHYSICIAN: REFERRING PHYSICIAN: SEB HUA MD DATE OF SERVICE: 08/28/20 Case Management Discharge Planning Summary COMMENTS ENTERED DATE: 08/28/20 12:49 CT COMMENT TYPE: Discharge Planning REVIEWER: Kathy Dodson DC PLAN: Home with [facility] health ANTICIPATED DC NEEDS: No needs identified CM met with patient to complete initial dc planning assessment. CM educated patient on the CM role and verbal consent given by patient to complete assessment. Patient's PCP is Gustavo Uribe in [place]. He uses [facility] in [place] for short term medications. States he uses oxygen on 2-3 liters NC at home 26/12. He has 1 step to enter home and 0 steps inside. CM verified patient's address, phone number, and emergency contact phone numbers. Patient lives at home with spouse. Patient currently has Home Health Services and wishes to resume at discharge. MARTHA form signed by patient for resumption of Home Health. Signed form placed in chart and signed form given to patient. I spoke with Millicent at [facility]) and clinical faxed. At discharge patient plans to return and feels this is a safe discharge. Patient denied further known discharge needs at this time. . Transportation provider at discharge will be his daughter. CM will continue to follow and will assist as needed with dc plans/needs. DCP REVIEW SUMMARY ANTICIPATED D/C DATE: EXPECTED LOS : CASE STATUS: DCP Initiated INITIAL REVIEW: 08/28/2020 INITIAL REVIEWER: Kathy Dodson FINAL DISCHARGE DISPOSITION: : FINAL REVIEWER: FINAL REVIEW DATE: DCP Focus Questions & Answers DCP REV -DCP Review Added on: 08/28/20 12:45 pm QUESTION: ANSWER DCP Screen High Risk Factors: : Hosp related to CHF, COPD, DM, End Stage Ds, CVA, CA DCP Evaluation Patient's ability to cope with chronic illness : a. Adequate (0-3 ED visits in 6 mos., adequate financial resources, attends scheduled appts.) Mental health screen: : No mental health history Would patient like to participate in any Care Coordination programs (if applicable): : Not applicable Patient gives permission to discuss discharge plans with: (name, relationship and number) : Cassie Hodges - DTR - [phone] Physical Status: : Independent with ADL's Partial Dependence, assistance required for: : Ambulation / Mobility Baseline cognitive status: : *Oriented to person, place, situation, time and present Family / Caregiver's ability to cope with chronic illness: : a. Adequate (ability to meet patient's medical needs, ensures patient attends medical appts.) Living Arrangements: : Home with Spouse/Significant Other Pharmacy name(s): : [facility] [place] Does Patient have transportation to get home and to follow-up medical appointments when discharged from the hospital? : Yes Comments: : States he and his both drive during the day. His daughter will take him home Equipment in use: : Home Oxygen with Nasal Cannula Equipment in use: : Other Equipment in use: : Shower Chair Equipment in use: : Walker - Rollator Equipment in use: : Walker - Standard Other Equipment comments: : Portable oxygen Equipment agency name and contact information: : [facility] Resources / Services in place: : Home health Patient's current cognitive status: : *Oriented to person, place, situation, time and present Does the patient have the ability to pay for or attain post discharge needs / services? : Yes Is there a likelihood that the patient will require additional services to return to the preadmission environment? : No Results of this evaluation have been discussed with: : Patient DCP Re-evaluation Would patient like to participate in any Care Coordination programs (if applicable): : Not applicable PATIENT: BECKY GAVIRIA ENCOUNTER: [id number] MEDICAL RECORD#: [id number] ADMISSION DATE: 08/24/2020 DISCHARGE DATE: ATTENDING MD: MELITA HUA : AGE: 79 MARITAL STATUS: M DC PLAN ID: [id number] FACILITY: [facility] PRINTED ON: 08/28/20 13:04 CT All edits/amendments must be made on the electronic document DICTATION DATE: 08/28/20 1304 PRACTICE OR STUDENT TEACHER: SALVADOR 08/28/20 1304 RPT#: [id number] DC DATE: STATUS: ADM IN [facility] [address] [place] [address] END OF REPORT
--- NOTE | 2020-08-28 15:30 | NUR ---
WALKED 100 FT SEEMED TO TIRE OUT TOWARDS THE END OF THE WALK USED GT BELT AND WALKED ON 3 LITERS 02
--- NOTE | 2020-08-28 15:48 | NUR ---
DISCHARGE INSTRUCTIONS REVIEWED AND SIGNED. IV OUT, TELEMETRY REMOVED. SCRIPTS SENT TO [facility] IN [place]. DAUGHTER OVER FROM [employer] TO WHEEL HIM OUTSIDE FOR HOME. PORTABLE OXYGEN WITH HIM.
--- NOTE | 2020-08-29 16:01 | MORECARE ---
CASE MANAGEMENT DISCHARGE SUMMARY PATIENT: BECKY GAVIRIA UNIT: [id number] ADM DATE: 08/24/20 AGE: 79 : 42 SEX: M ROOM/BED: D.2 AUTHOR: RADHA,DOC PHYSICIAN: REFERRING PHYSICIAN: SEB HUA MD DATE OF SERVICE: 08/29/20 Case Management Discharge Planning Summary CT Patient Name: BECKY GAVIRIA Attending MD : TINY HUA, Medical Record: [id number] Encounter : [id number] Facility : [address] [place] [address] Medical Admission Date : 114:46 Center Discharge Date : 08/28/[address] [place] [address] Date of : DC Plan ID : [id number] Age/Sex/Martia : 79/ M/M Printed on : 08/29/20 16:00 CT DCP Review Details Anticipated D/C: Expected LOS : 0 Case Status : COMPLET - Initial Reviewe: [id number] - Kathy Dodson Initial Review: 08/28/2020 Planned Disposi: 06 - Discharged/Trans to Home Under Care of Organized Home Health Service in Anticipation of Skilled Care Final Discharge: 06 - Discharged/Trans to Home Under Care of Organized Home Health Service in Anticipation of Skilled Care Final Reviewer : [id number] : Kathy Dodson Final Review : 08/29/[address] Entered Date Type Reviewer 08/28/20 12:49 CT Discharge Planning Kathy Dodson Comment DC PLAN: Home with [facility] health ANTICIPATED DC NEEDS: No needs identified CM met with patient to complete initial dc planning assessment. CM educated patient on the CM role and verbal consent given by patient to complete assessment. Patient's PCP is Gustavo Uribe in [place]. He uses [facility] in [place] for short term medications. States he uses oxygen on 2-3 liters NC at home 26/12. He has 1 step to enter home and 0 steps inside. CM verified patient's address, phone number, and emergency contact phone numbers. Patient lives at home with spouse. Patient currently has Home Health Services and wishes to resume at discharge. MARTHA form signed by patient for resumption of Home Health. Signed form placed in chart and signed form given to patient. I spoke with Millicent at [facility]) and clinical faxed. At discharge patient plans to return and feels this is a safe discharge. Patient denied further known discharge needs at this time. . Transportation provider at discharge will be his daughter. CM will continue to follow and will assist as needed with dc plans/needs. DCP Focus Questions & Answers DCP Screen High Risk Factors: Hosp related to CHF, COPD, DM, End Stage Ds, CVA, CA DCP Evaluation Patient's ability to cope with chronic illness a. Adequate (0-3 ED visits in 6 mos., adequate financial resources, attends scheduled appts.) Patient gives permission to discuss discharge Cassie Hodges - DTR - [phone] plans with: (name, relationship and number) Patient's current cognitive status: *Oriented to person, place, situation, time and present Physical Status: Independent with ADL's Family / Caregiver's ability to cope with chronic a. Adequate (ability to meet patient's illness: medical needs, ensures patient attends medical appts.) Does the patient have the ability to pay for or Yes attain post discharge needs / services? Partial Dependence, assistance required for: Ambulation / Mobility Living Arrangements: Home with Spouse/Significant Other Is there a likelihood that the patient will No require additional services to return to the preadmission environment? Baseline cognitive status: *Oriented to person, place, situation, time and present Results of this evaluation have been discussed Patient with: Pharmacy name(s): [facility] [place] Does Patient have transportation to get home and Yes to follow-up medical appointments when discharged from the hospital? Would patient like to participate in any Care Not applicable Coordination programs (if applicable): Comments: States he and his both drive during the day. His daughter will take him home Equipment in use: Home Oxygen with Nasal Cannula Equipment in use: Other Equipment in use: Shower Chair Equipment in use: Walker - Rollator Equipment in use: Walker - Standard Other Equipment comments: Portable oxygen Equipment agency name and contact information: [facility] Mental health screen: No mental health history Resources / Services in place: Home health DCP Re-evaluation Would patient like to participate in any Care Not applicable Coordination programs (if applicable): [facility] BECKY GAVIRIA MR#: [id number] /Age/Sex/[id number]-[id number] //M /M Attending Physician Name: MELITA [id number] Patient Account:[id number] [facility] Page -1 of 1 All edits/amendments must be made on the electronic document DICTATION DATE: 08/29/201599 ENDOSCOPY SUPPORT SPECIALIST: SALVADOR 08/29/201599 RPT#: [id number] DC DATE:08/28/20 STATUS: DIS IN [facility] [address] [place] [address] END OF REPORT
--- NOTE | 2020-08-31 13:04 | MORECARE ---
CASE MANAGEMENT DISCHARGE SUMMARY PATIENT: BECKY GAVIRIA UNIT: [id number] ADM DATE: 08/24/20 AGE: 79 : 42 SEX: M ROOM/BED: D.2 AUTHOR: RADHA,DOC PHYSICIAN: REFERRING PHYSICIAN: SEB HUA MD DATE OF SERVICE: 08/31/20 Case Management Discharge Planning Summary CT Patient Name: BECKY GAVIRIA Attending MD : TINY HUA, Medical Record: [id number] Encounter : [id number] Facility : [address] [place] [address] Medical Admission Date : 114:46 Center Discharge Date : 08/28/[address] [place] [address] Date of : DC Plan ID : [id number] Age/Sex/Martia : 79/ M/M Printed on : 08/31/20 13:03 CT DCP Review Details Anticipated D/C: Expected LOS : 0 Case Status : COMPLET - Initial Reviewe: [id number] - Kathy Dodson Initial Review: 08/28/2020 Planned Disposi: 06 - Discharged/Trans to Home Under Care of Organized Home Health Service in Anticipation of Skilled Care Final Discharge: 06 - Discharged/Trans to Home Under Care of Organized Home Health Service in Anticipation of Skilled Care Final Reviewer : [id number] : Kathy Dodson Final Review : 08/29/[address] Entered Date Type Reviewer 08/28/20 12:49 CT Discharge Planning Kathy Dodson Comment DC PLAN: Home with [facility] health ANTICIPATED DC NEEDS: No needs identified CM met with patient to complete initial dc planning assessment. CM educated patient on the CM role and verbal consent given by patient to complete assessment. Patient's PCP is Gustavo Uribe in [place]. He uses [facility] in [place] for short term medications. States he uses oxygen on 2-3 liters NC at home 26/12. He has 1 step to enter home and 0 steps inside. CM verified patient's address, phone number, and emergency contact phone numbers. Patient lives at home with spouse. Patient currently has Home Health Services and wishes to resume at discharge. MARTHA form signed by patient for resumption of Home Health. Signed form placed in chart and signed form given to patient. I spoke with Millicent at [facility]) and clinical faxed. At discharge patient plans to return and feels this is a safe discharge. Patient denied further known discharge needs at this time. . Transportation provider at discharge will be his daughter. CM will continue to follow and will assist as needed with dc plans/needs. DCP Focus Questions & Answers DCP Screen High Risk Factors: Hosp related to CHF, COPD, DM, End Stage Ds, CVA, CA DCP Evaluation Patient's current cognitive status: *Oriented to person, place, situation, time and present Patient gives permission to discuss discharge Cassie Hodges - DTR - [phone] plans with: (name, relationship and number) Patient's ability to cope with chronic illness a. Adequate (0-3 ED visits in 6 mos., adequate financial resources, attends scheduled appts.) Does the patient have the ability to pay for or Yes attain post discharge needs / services? Family / Caregiver's ability to cope with chronic a. Adequate (ability to meet patient's illness: medical needs, ensures patient attends medical appts.) Physical Status: Independent with ADL's Is there a likelihood that the patient will No require additional services to return to the preadmission environment? Living Arrangements: Home with Spouse/Significant Other Partial Dependence, assistance required for: Ambulation / Mobility Results of this evaluation have been discussed Patient with: Baseline cognitive status: *Oriented to person, place, situation, time and present Pharmacy name(s): [facility] Does Patient have transportation to get home and Yes to follow-up medical appointments when discharged from the hospital? Comments: States he and his both drive during the day. His daughter will take him home Would patient like to participate in any Care Not applicable Coordination programs (if applicable): Equipment in use: Walker - Standard Equipment in use: Walker - Rollator Equipment in use: Shower Chair Equipment in use: Other Equipment in use: Home Oxygen with Nasal Cannula Other Equipment comments: Portable oxygen Equipment agency name and contact information: [facility] Mental health screen: No mental health history Resources / Services in place: Home health DCP Re-evaluation Would patient like to participate in any Care Not applicable Coordination programs (if applicable): [facility] BECKY GAVIRIA MR#: [id number] /Age/Sex/[id number] //M /M Attending Physician Name: MELITA [id number] Patient Account:[id number] [facility] Page -1 of 1 All edits/amendments must be made on the electronic document DICTATION DATE: 08/31/20 1303 DIETETICS DIRECTOR: SALVADOR 08/31/20 1303 RPT#: [id number] DC DATE:08/28/20 STATUS: DIS IN [facility] [address] [place] [address] END OF REPORT
== END 2020-08-28 15:51 | disposition home health service (06) | DRG 193 ==
LOC: D.ER 10:49 → D.M2 14:46
PROVIDERS: Family Medicine; Internal Medicine Pulmonary Disease; ADMIT Family Medicine; ATTEND Family Medicine
PROC: 0W993ZZ Drainage of Right Pleural Cavity, Percutaneous Approach (ICD-10-PCS; principal; 2020-08-25)
DX: J18.9 Pneumonia, unspecified organism (principal); J96.21 Acute and chronic respiratory failure with hypoxia; J96.22 Acute and chronic respiratory failure with hypercapnia; J90 Pleural effusion, not elsewhere classified; I50.22 Chronic systolic (congestive) heart failure; R73.9 Hyperglycemia, unspecified; D64.9 Anemia, unspecified; J84.10 Pulmonary fibrosis, unspecified; E03.9 Hypothyroidism, unspecified; M19.90 Unspecified osteoarthritis, unspecified site; M10.9 Gout, unspecified; N40.0 Benign prostatic hyperplasia without lower urinary tract symptoms; I11.0 Hypertensive heart disease with heart failure; K74.60 Unspecified cirrhosis of liver; R16.1 Splenomegaly, not elsewhere classified; E78.5 Hyperlipidemia, unspecified; R53.81 Other malaise; J47.9 Bronchiectasis, uncomplicated

== ENCOUNTER 2020-09-25 10:18 | Inpatient (IN) | payer MEDICARE ==
[2020-09-25] VITALS (11 sets, daily range): BP systolic 109–180; BP diastolic 70–104; BMI 31.4
[~2020-09-25] VITALS: Ht 188 cm; Wt 114.3 kg
[~2020-09-25 10:18] MED LIST changes: +ADOXA100 MG PO; +OMNICEF300 MG PO
--- NOTE | 2020-09-25 10:59 | NUR ---
RADIOLOGY AT BEDSIDE FOR CHEST X RAY, RT AT BEDSIDE PLACING PATIENT ON BIPAP.
[2020-09-25 11:17] LABS: BASOPHILS 0.2 % (0-2); EOSINOPHILS 1.2 % (0-7); HEMATOCRIT 38.9 % (42.0-54.0); HEMOGLOBIN 12.9 g/dL (13.5-17.5); IMMATURE GRANULOCYTES 0.3 % (0-5); LYMPHOCYTE ABS# 0.87 10x3/uL (1.32-3.57); LYMPHOCYTES 7.7 % (15-50); MCH 32.1 pg (26.0-34.0); MCHC 33.2 g/dL (31.0-37.0); MCV 96.8 fL (80.0-100.0); MEAN PLATELET VOLUME 11.1 fL (7.4-10.4); MONOCYTES 13.3 % (2-11); NEUTROPHIL ABS# 8.75 10x3/uL (1.78-5.38); NEUTROPHILS 77.3 % (40-80); PLATELET COUNT 139 10x3/uL (130-400); RBC 4.02 10x6/uL (4.20-6.10); RDW 14.4 % (11.5-14.5); WBC 11.3 10x3/uL (4.8-10.8)
[2020-09-25 11:24] LABS: CALC OSMOLALITY 286 mosm/kg (275-300); CALCIUM 9.3 mg/dL (8.5-10.1); CARBON DIOXIDE 27.2 mmol/L (21.0-32.0); CHLORIDE - SERUM 108 mmol/L (98-107); GLUCOSE 140 mg/dL (74-106); POTASSIUM - SERUM 4.2 mmol/L (3.5-5.1); SODIUM 142 mmol/L (136-145); UREA NITROGEN 17 mg/dL (7-18); eGFR NON AFRICAN AMERICAN 77 mL/min (90-120)
[2020-09-25 11:38] LABS: ALBUMIN 2.8 g/dL (3.4-5.0); ALKALINE PHOSPHATASE 95 U/L (30-120); ALT (SGPT) 22 U/L (10-68); BILIRUBIN - TOTAL 1.79 mg/dL (0.2-1.3); PRO BNP 84 pg/mL (0-450); PROTEIN - SERUM 7.6 g/dL (6.4-8.2); TROPONIN-I < 0.017 ng/mL (0.000-0.060)
--- NOTE | 2020-09-25 12:07 | NUR ---
ROUND PERFORMED, PATIENT ALERT AND ORIENTED, BIPAP IN USE. AT BEDSIDE, SAFETY CHECKS DONE, DENIES NEEDS, WILL MONITOR.
--- NOTE | 2020-09-25 13:13 | NUR ---
PATIENT BIPAP REMOVED FOR LESS THAN 1 MINUTE FOR 2 SIPS OF WATER AFTER REPEATED OUTBURSTS FROM THAT HE IS THIRSTY IN HALLWAY. PATIENT DESAT TO 85%, COACHED IN BREATHING. AND PATIENT BOTH EDUCATED ON WHY THE BIPAP IS IMPORTANT AND PURPOSE. PATIENT STATES "WELL HE HAS NEVER NEEDED THIS BEFORE SO WHY NOW". ATTEMPTED TO RE-EDUCATE. UNSURE IF COMPREHENDS TEACHING. PATIENT STILL AGREEABLE TO BIPAP AT THIS TIME. O2 SAT INCREASED TO 96% BEFORE LEAVING ROOM.
--- NOTE | 2020-09-25 14:11 | NUR ---
COVID ANTIGEN SWAB OBTAINED
[2020-09-25 14:34] LABS: SARS-CoV-2 ANTIGEN NEGATIVE- SARS-COV-2 (NEGATIVE)
[2020-09-25 14:54] LABS: INR 1.38 (0.85-1.17); PROTIME 15.7 SECONDS (11.6-15.0)
[2020-09-25 15:05] LABS: BILIRUBIN NEGATIVE (NEGATIVE); KETONE NEGATIVE (NEGATIVE); NITRITE NEGATIVE (NEGATIVE); UROBILINOGEN NORMAL mg/dL (< 2)
[2020-09-25 15:12] LABS: D-DIMER-QUANTITATIVE 2.47 ug/mLFEU (0.20-0.54)
--- NOTE | 2020-09-25 15:16 | NUR ---
DR SINGER PAGED TO NOTIFY OF CRITICAL LAB, D DIMER 2.47
--- NOTE | 2020-09-25 15:17 | NUR ---
SOMMER SINGER NOTIFIED THAT D DIMER IS 2.47
--- NOTE | 2020-09-25 15:30 | NUR ---
RADIOLOGY ON FLOOR TO TAKE PATIENT FOR CTA. RT CALLED, STATES THEY WILL COME AND PLACE PATIENT ON NRB.
--- NOTE | 2020-09-25 15:43 | NUR ---
PATIENT TAKEN TO CT ON NRB WITH RT AND RADIOLOGY
--- NOTE | 2020-09-25 16:07 | NUR ---
REQUESTED PACKET FROM REGISTRATION SO THAT PATIENT REPORT CAN BE CALLED AND THEY CAN BE TRANSFERRED. REGISTRATION STATES PACKET IS NOT DONE THEY WILL BRNG SOON.
--- NOTE | 2020-09-25 16:16 | NUR ---
REPORT CALLED TO KEV ON MED SURG.
--- NOTE | 2020-09-25 16:25 | NUR ---
PATIENT TAKEN TO FLOOR ON NRB BY CHEL CORRALES AT THIS TIME.
--- NOTE | 2020-09-25 17:27 | NUR ---
PATIENT ADMITTED TO ROOM 2219. ADMISSION COMPLETE. BED ALARM ON. CALL GARRETT AND PERSONAL ITEMS IN REACH. WILL CONTINUE TO MONITOR.
--- NOTE | 2020-09-25 17:35 | NUR ---
ADD TO ADMISSION ASSESSMENT. PATIENT HAS TOP DENTURES.
--- NOTE | 2020-09-25 18:56 | NUR ---
TOP DENTURES REMOVED AND PLACED IN CUP WITH MAT TESTER BESIDE SINK. CUP LABELED WITH PATIENT STICKER.
--- NOTE | 2020-09-25 21:20 | NUR ---
TAKEN OFF BIPAP, PLACED ON 8L HIGH FLOW WHILE TAKING MEDICATIONS, SATING 96%, NOTIFIED RESPIRATORY, PT STATES BRIDGE OF NOSE WAS GETTING SORE FROM BIPAP MASK
--- NOTE | 2020-09-25 23:14 | NUR ---
PATIENT HAS STATED THAT BIPAP INTERFACE (MASK) IS HURTING THE BRIDGE OF HIS NOSE. IT APPEARS THAT THERE IS A PRIOR INJURY TO THE AREA. RN HAS REMOVED PATIENT FROM BIPAP AND PLACED ON HFNC AT 8 LPM. CURRENT SPO2 ON 8 LPM IS 98%. DECREASED FIO2 TO 6 LPM. WILL CONTINUE TO MONITOR PATIENT SPO2. RN IS AWARE OF CHANGE IN FIO2.
--- NOTE | 2020-09-26 00:16 | NUR ---
I have reviewed this patient and I concur with the Shift Assessment completed by the Licensed Practical Nurse today this shift.
[2020-09-26 01:19] VITALS: BP 113/69
--- NOTE | 2020-09-26 03:26 | NUR ---
RN STATED THAT PATIENT HAD AN INCREASE IN WOB. RN PLACED PATIENT BACK ON BIPAP.
--- NOTE | 2020-09-26 03:30 | NUR ---
PLACED PT BACK ON BIPAP RESPIRATIONS IN 40S O2 SAT 94% ON 6L HIGH FLOW, NOTIFIED RESPIRATORY
[2020-09-26 04:00] VITALS: BP 104/63
--- NOTE | 2020-09-26 04:00 | NUR ---
DECREASED FIO2 FROM 40% TO 35%
[2020-09-26 06:40] LABS: BASOPHILS 0.1 % (0-2); EOSINOPHILS 0 % (0-7); HEMATOCRIT 35.1 % (42.0-54.0); HEMOGLOBIN 11.5 g/dL (13.5-17.5); IMMATURE GRANULOCYTES 0.3 % (0-5); LYMPHOCYTES 6.9 % (15-50); MCH 31.9 pg (26.0-34.0); MCHC 32.8 g/dL (31.0-37.0); MCV 97.2 fL (80.0-100.0); MEAN PLATELET VOLUME 11.3 fL (7.4-10.4); MONOCYTES 5.4 % (2-11); NEUTROPHIL ABS# 7.58 10x3/uL (1.78-5.38); NEUTROPHILS 87.3 % (40-80); PLATELET COUNT 120 10x3/uL (130-400); RBC 3.61 10x6/uL (4.20-6.10); RDW 14.1 % (11.5-14.5); WBC 8.7 10x3/uL (4.8-10.8)
[2020-09-26 07:19] LABS: ALBUMIN 2.2 g/dL (3.4-5.0); ALKALINE PHOSPHATASE 78 U/L (30-120); ALT (SGPT) 19 U/L (10-68); BILIRUBIN - TOTAL 0.99 mg/dL (0.2-1.3); CALC OSMOLALITY 288 mosm/kg (275-300); CALCIUM 8.7 mg/dL (8.5-10.1); CARBON DIOXIDE 29.7 mmol/L (21.0-32.0); CHLORIDE - SERUM 107 mmol/L (98-107); CREATININE - SERUM 0.9 mg/dL (0.6-1.3); GLUCOSE 169 mg/dL (74-106); POTASSIUM - SERUM 4.4 mmol/L (3.5-5.1); PROTEIN - SERUM 6.6 g/dL (6.4-8.2); SODIUM 142 mmol/L (136-145); UREA NITROGEN 19 mg/dL (7-18); eGFR NON AFRICAN AMERICAN 87 mL/min (90-120)
[2020-09-26 08:52] VITALS: BP 102/67
[2020-09-26 11:45] VITALS: BP 106/70
--- NOTE | 2020-09-26 12:00 | NUR ---
RESTING IN BED, NO DISTRESS NOTED, THORACENTESIS DONE AT BEDSIDE, KIRSTEN WELL
[2020-09-26 12:11] LABS: PROTEIN - BODY FLUID 1.2 G/DL
[2020-09-26 12:17] VITALS: BMI 31.3
[2020-09-26 16:50] VITALS: BP 112/65
--- NOTE | 2020-09-26 17:48 | NUR ---
FAMILY IN ROOM, PT BREATHING EASY, DRESSING TO R BACK DRY AND INTACT, CONT TO MONITOR
--- NOTE | 2020-09-26 21:53 | NUR ---
AROUSES EASILY TO VERBAL STIMULI. NO COMPLAINTS VOICED. RESP EVEN AND UNALBORED.O2 @ 3L PER NC ON. NO DISTRESS NOTED. CL IN REACH
--- NOTE | 2020-09-27 00:37 | NUR ---
I have reviewed this patient and I concur with the Shift Assessment completed by the Licensed Practical Nurse today this shift.
[2020-09-27 05:22] LABS: BASOPHILS 0.1 % (0-2); EOSINOPHILS 0 % (0-7); HEMATOCRIT 33.8 % (42.0-54.0); HEMOGLOBIN 10.9 g/dL (13.5-17.5); IMMATURE GRANULOCYTES 0.5 % (0-5); LYMPHOCYTES 4.8 % (15-50); MCH 31.5 pg (26.0-34.0); MCHC 32.2 g/dL (31.0-37.0); MCV 97.7 fL (80.0-100.0); MEAN PLATELET VOLUME 11.7 fL (7.4-10.4); MONOCYTES 4.5 % (2-11); NEUTROPHIL ABS# 11.37 10x3/uL (1.78-5.38); NEUTROPHILS 90.1 % (40-80); PLATELET COUNT 111 10x3/uL (130-400); RBC 3.46 10x6/uL (4.20-6.10)
[2020-09-27 05:29] LABS: WBC 12.6 10x3/uL (4.8-10.8)
[2020-09-27 05:51] LABS: ALBUMIN 2.1 g/dL (3.4-5.0); ALKALINE PHOSPHATASE 73 U/L (30-120); ALT (SGPT) 20 U/L (10-68); BILIRUBIN - TOTAL 0.62 mg/dL (0.2-1.3); CALC OSMOLALITY 287 mosm/kg (275-300); CALCIUM 8.6 mg/dL (8.5-10.1); CARBON DIOXIDE 28.7 mmol/L (21.0-32.0); CHLORIDE - SERUM 108 mmol/L (98-107); CREATININE - SERUM 0.9 mg/dL (0.6-1.3); GLUCOSE 158 mg/dL (74-106); POTASSIUM - SERUM 4.4 mmol/L (3.5-5.1); PROTEIN - SERUM 6.1 g/dL (6.4-8.2); SODIUM 141 mmol/L (136-145); eGFR NON AFRICAN AMERICAN 87 mL/min (90-120)
[2020-09-27 05:52] LABS: UREA NITROGEN 24 mg/dL (7-18)
--- NOTE | 2020-09-27 07:49 | NUR ---
RESTING IN BED, NO DISTRESS NOTED, O2 PER NC AT 3L, CONT TO MONITOR SUGARS
[2020-09-27 10:56] VITALS: BP 95/55
[2020-09-27 14:36] VITALS: BP 87/53
[2020-09-27 17:43] VITALS: BP 105/61
[2020-09-27 20:00] VITALS: BP 107/65
--- NOTE | 2020-09-27 21:01 | NUR ---
PLACED PT ON BIPAP 12/5 40% PER DR ORDER SPO2 CURRENTLY 96% EQUALATERAL EXCURSION BILATERAL DIM BREATH SOUNDS NO CYANOSIS OR IMMEDIATE S/S RESP DISTRESS NOTED AT THIS TIME
[2020-09-28 04:00] VITALS: BP 109/71
--- NOTE | 2020-09-28 05:32 | NUR ---
I have reviewed this patient and I concur with the Shift Assessment completed by the Licensed Practical Nurse today this shift.
[2020-09-28 06:00] LABS: BASOPHILS 0 % (0-2); EOSINOPHILS 0 % (0-7); HEMATOCRIT 34.9 % (42.0-54.0); HEMOGLOBIN 11.2 g/dL (13.5-17.5); IMMATURE GRANULOCYTES 0.3 % (0-5); LYMPHOCYTE ABS# 0.47 10x3/uL (1.32-3.57); LYMPHOCYTES 4.9 % (15-50); MCH 31.5 pg (26.0-34.0); MCHC 32.1 g/dL (31.0-37.0); MCV 98.3 fL (80.0-100.0); MEAN PLATELET VOLUME 11.5 fL (7.4-10.4); MONOCYTES 4.3 % (2-11); NEUTROPHIL ABS# 8.66 10x3/uL (1.78-5.38); NEUTROPHILS 90.5 % (40-80); PLATELET COUNT 92 10x3/uL (130-400); RBC 3.55 10x6/uL (4.20-6.10); RDW 14.1 % (11.5-14.5); WBC 9.6 10x3/uL (4.8-10.8)
[2020-09-28 06:12] LABS: CALC OSMOLALITY 289 mosm/kg (275-300); CALCIUM 8.3 mg/dL (8.5-10.1); CARBON DIOXIDE 30.3 mmol/L (21.0-32.0); CHLORIDE - SERUM 108 mmol/L (98-107); GLUCOSE 161 mg/dL (74-106); POTASSIUM - SERUM 4.4 mmol/L (3.5-5.1); SODIUM 142 mmol/L (136-145); UREA NITROGEN 24 mg/dL (7-18); eGFR NON AFRICAN AMERICAN 77 mL/min (90-120)
[2020-09-28 06:17] LABS: ALKALINE PHOSPHATASE 69 U/L (30-120); BILIRUBIN - TOTAL 0.55 mg/dL (0.2-1.3); PROTEIN - SERUM 5.9 g/dL (6.4-8.2)
[2020-09-28 06:18] LABS: ALT (SGPT) 28 U/L (10-68)
[2020-09-28 09:07] VITALS: BP 112/65
[2020-09-28 11:45] LABS: INFLUENZA TYPE A NEGATIVE (NEGATIVE); INFLUENZA TYPE B NEGATIVE (NEGATIVE)
[2020-09-28 12:49] LABS: PLATELET ESTIMATE DECREASED
[2020-09-28 12:50] LABS: ROULEAUX OCC
[2020-09-28 14:20] VITALS: BP 115/76
--- NOTE | 2020-09-28 14:53 | NUR ---
WALKED ON 4 LITERS USING A WALKER AND GT BELT WALKED 100FT MIN ASSIT 02 NEVER DROPPED BELOW 89
[2020-09-28 17:00] VITALS: BP 122/72
[2020-09-28 20:00] VITALS: BP 129/80
--- NOTE | 2020-09-28 21:30 | NUR ---
APPLIED BIPAP 12/5 40% SPO2 96% EQUALATERAL EXCURSION MADHURI DIM BS ZERO CYANOSIS NO IMMEDIATE S/S RESP DISTRESS NOTED
--- NOTE | 2020-09-28 23:17 | NUR ---
PT RESTING IN BED WITH NO COMPLAINTS OF PAIN AND NO DISTRESS NOTED. WAS ABLE TO GO TO THE RESTROOM A STANDBY ASSIST WITH A WALKER. BIPAP IS ON AT THIS TIME. ABLE TO MAKE WANTS AND NEEDS KNOWN CLEARLY. BED IN LOW POSITION WITH CALL LIGHT IN REACH.
[2020-09-29] VITALS: BP 122/83
[2020-09-29 04:00] VITALS: BP 137/97
[2020-09-29 07:31] LABS: BASOPHILS 0 % (0-2); EOSINOPHILS 0 % (0-7); HEMATOCRIT 37.5 % (42.0-54.0); HEMOGLOBIN 12.2 g/dL (13.5-17.5); IMMATURE GRANULOCYTES 0.7 % (0-5); LYMPHOCYTE ABS# 0.47 10x3/uL (1.32-3.57); LYMPHOCYTES 5.4 % (15-50); MCH 31.8 pg (26.0-34.0); MCHC 32.5 g/dL (31.0-37.0); MCV 97.7 fL (80.0-100.0); MEAN PLATELET VOLUME 11.1 fL (7.4-10.4); MONOCYTES 4.5 % (2-11); NEUTROPHIL ABS# 7.78 10x3/uL (1.78-5.38); NEUTROPHILS 89.4 % (40-80); PLATELET COUNT 85 10x3/uL (130-400); RBC 3.84 10x6/uL (4.20-6.10); RDW 14.1 % (11.5-14.5); WBC 8.7 10x3/uL (4.8-10.8)
[2020-09-29 07:44] LABS: ALBUMIN 2.3 g/dL (3.4-5.0); ALKALINE PHOSPHATASE 76 U/L (30-120); ALT (SGPT) 35 U/L (10-68); CALC OSMOLALITY 289 mosm/kg (275-300); CALCIUM 8.5 mg/dL (8.5-10.1); CARBON DIOXIDE 31.2 mmol/L (21.0-32.0); CHLORIDE - SERUM 106 mmol/L (98-107); GLUCOSE 190 mg/dL (74-106); MAGNESIUM - SERUM 1.8 mg/dL (1.8-2.4); PHOSPHOROUS 3.3 mg/dL (2.5-4.9); POTASSIUM - SERUM 4.4 mmol/L (3.5-5.1); PROTEIN - SERUM 6.6 g/dL (6.4-8.2); SODIUM 141 mmol/L (136-145); UREA NITROGEN 24 mg/dL (7-18); eGFR NON AFRICAN AMERICAN 77 mL/min (90-120)
--- NOTE | 2020-09-29 08:20 | MORECARE ---
CASE MANAGEMENT DISCHARGE SUMMARY PATIENT: BECKY GAVIRIA UNIT: [id number] ADM DATE: 09/25/20 AGE: 79 : 42 SEX: M ROOM/BED: D.2219 AUTHOR: RADHA,DOC PHYSICIAN: REFERRING PHYSICIAN: LUCERO SINGER DO DATE OF SERVICE: 09/29/20 Case Management Discharge Planning Summary COMMENTS ENTERED DATE: 09/29/20 8:15 CT COMMENT TYPE: Discharge Planning REVIEWER: Leena HUGHES SPOKE WITH ME YESTERDAY ABOUT GETTING A TRILIOGY FOR THE PATIENT, I HAVE CONTACTED [facility] THE PATIENT'S DME AND FAXED CLINCIALS OVER TO THEM TO START THE PROCESS OF GETTING THAT APPROVED. I SPOKE WITH ORLANDO RYAN REVIEW SUMMARY ANTICIPATED D/C DATE: EXPECTED LOS : CASE STATUS: DCP Initiated INITIAL REVIEW: 09/25/2020 INITIAL REVIEWER: Leena Garg FINAL DISCHARGE DISPOSITION: : FINAL REVIEWER: FINAL REVIEW DATE: DCP Focus Questions & Answers QUESTION: ANSWER : PATIENT: BECKY GAVIRIA ENCOUNTER: [id number] MEDICAL RECORD#: [id number] ADMISSION DATE: 09/25/2020 DISCHARGE DATE: ATTENDING MD: LUCERO IQBAL : AGE: 79 MARITAL STATUS: M DC PLAN ID: [id number] FACILITY: [facility] PRINTED ON: 09/29/20 8:20 CT All edits/amendments must be made on the electronic document DICTATION DATE: 09/29/20819 PHILOSOPHY AND RELIGION INSTRUCTOR: SALVADOR 09/29/20819 RPT#: [id number] DC DATE: STATUS: ADM IN [facility] [address] [place] [address] END OF REPORT
[2020-09-29 09:37] VITALS: BP 131/86
[2020-09-29 12:04] VITALS: BP 125/90
--- NOTE | 2020-09-29 13:45 | NUR ---
PATIENT REFUSED PT STATED HE WAS HAVING A BAD BREATHING SPELL AND DIDNT WANT TO PUSH IT TODAY
--- NOTE | 2020-09-29 16:02 | NUR ---
Nutrition Re-Assessment: Diet: Regular PO intake: 50% of breakfast and 95% of lunch. States that his appetite is good and denies needs from dietary at this time. Last BM: "last night" per patient Wt: 251# (09/29/20); Admit Wt: 244# vs 254# (09/25/20) Meds noted: lasix, abx, probiotics, miralax, solumedrol, SSI, NS@50 Labs noted: Glu 190(H), POC Glu 188(H), alb 2.3(L) Estimated nutrition needs and nutrition diagnosis remain unchanged from initial nutrition assessment at this time. Nutrition goals: -PO intake >65% meals -Dry weight stable -Blood glucose to trend WNL Recommendations/Interventions: -Will changed diet to diabetic 2/2 elevated blood glucose. -Will continue to honor food preferences within diet restrictions. -RD will follow-up 10/02/20.
[2020-09-29 16:51] VITALS: BP 113/70
[2020-09-29 20:40] VITALS: BP 121/87
--- NOTE | 2020-09-29 23:38 | NUR ---
PT WAS IN UP IN BED. PT COMPLAINED OF SOME SHORTNESS OF BREATH. WAS ON O2 VIA NASAL CANNULA AT 2-3L LITERS. BREATHING TREATMENTS WERE GIVEN. CHEST XRAY WAS ORDERED FOR IN THE MORNING. PATIENT IS CURRENTLY WEARING BIPAP AND ASLEEP COMFORTABLY IN BED. BED IN LOWEST POSITION WITH CALL LIGHT IN REACH.
[2020-09-30] VITALS (7 sets, daily range): BP systolic 101–135; BP diastolic 62–89
[2020-09-30 07:01] LABS: BASOPHILS 0 % (0-2); EOSINOPHILS 0 % (0-7); HEMATOCRIT 38.7 % (42.0-54.0); HEMOGLOBIN 12.7 g/dL (13.5-17.5); IMMATURE GRANULOCYTES 0.5 % (0-5); LYMPHOCYTE ABS# 0.46 10x3/uL (1.32-3.57); LYMPHOCYTES 5.4 % (15-50); MCH 31.8 pg (26.0-34.0); MCHC 32.8 g/dL (31.0-37.0); MEAN PLATELET VOLUME 11.2 fL (7.4-10.4); MONOCYTES 4.4 % (2-11); NEUTROPHILS 89.7 % (40-80); PLATELET COUNT 91 10x3/uL (130-400); RBC 3.99 10x6/uL (4.20-6.10); WBC 8.6 10x3/uL (4.8-10.8)
[2020-09-30 07:05] LABS: ALBUMIN 2.4 g/dL (3.4-5.0); ALKALINE PHOSPHATASE 80 U/L (30-120); BILIRUBIN - TOTAL 0.79 mg/dL (0.2-1.3); CALC OSMOLALITY 292 mosm/kg (275-300); CALCIUM 8.9 mg/dL (8.5-10.1); CARBON DIOXIDE 32.6 mmol/L (21.0-32.0); CHLORIDE - SERUM 106 mmol/L (98-107); GLUCOSE 212 mg/dL (74-106); POTASSIUM - SERUM 4.4 mmol/L (3.5-5.1); PROTEIN - SERUM 6.7 g/dL (6.4-8.2); SODIUM 141 mmol/L (136-145); UREA NITROGEN 30 mg/dL (7-18); eGFR NON AFRICAN AMERICAN 77 mL/min (90-120)
[2020-09-30 07:06] LABS: ALT (SGPT) 45 U/L (10-68)
--- NOTE | 2020-09-30 08:06 | NUR ---
RESTING IN BED, NO DISTRESS NOTED, ALERT AND O, O2 PER NC AT 3L, CONT TO MONITOR SUGARS AND RESP STATUS
[2020-09-30 12:10] LABS: PLATELET ESTIMATE DECREASED
[2020-09-30 12:12] LABS: ROULEAUX OCC
--- NOTE | 2020-09-30 14:12 | NUR ---
INCREASED SOB TODAY, ELLEN SPOKE WITH DAUGHTER AT BEDSIDE, CXR IN ROOM
--- NOTE | 2020-09-30 15:44 | NUR ---
GT BELT, O2 AT 4, PATIENT ABLE TO GET UP TO BEDSIDE AND STAND BY HIMSELF. PATIENT O2 SAT DROPPED TO 86. BUMPED O2 UP TO 6 AND HIS O2 SAT TIANA TO 91. WALKED PATIENT 30 FEET WITH MIN ASST USING WALKER. PATIENT O2 SAT AFTER WALK WAS AT 81.
--- NOTE | 2020-09-30 19:08 | NUR ---
pt using bipap d/t sob
[2020-10-01] VITALS (14 sets, daily range): BP systolic 111–125; BP diastolic 67–90
--- NOTE | 2020-10-01 04:23 | NUR ---
PT IS RESTING IN BED. PT HAS BEEN WEARING BIPAP THROUGHOUT THE NIGHT. PT IS EXPERIENCING SOME SHORTNESS OF BREATH. ABLE TO MAKE WANTS AND NEEDS KNOWN CLEARLY. ALERT AND ORIENTED. BED IN LOWEST POSITION WITH CALL LIGHT IN REACH.
[2020-10-01 07:11] LABS: BASOPHILS 0.1 % (0-2); EOSINOPHILS 0 % (0-7); HEMATOCRIT 39.6 % (42.0-54.0); IMMATURE GRANULOCYTES 0.3 % (0-5); LYMPHOCYTE ABS# 0.45 10x3/uL (1.32-3.57); LYMPHOCYTES 4.6 % (15-50); MCH 31.8 pg (26.0-34.0); MCHC 32.8 g/dL (31.0-37.0); MCV 96.8 fL (80.0-100.0); MEAN PLATELET VOLUME 11.5 fL (7.4-10.4); NEUTROPHIL ABS# 8.67 10x3/uL (1.78-5.38); PLATELET COUNT 101 10x3/uL (130-400); RBC 4.09 10x6/uL (4.20-6.10); WBC 9.9 10x3/uL (4.8-10.8)
[2020-10-01 07:33] LABS: ALBUMIN 2.4 g/dL (3.4-5.0); ALKALINE PHOSPHATASE 80 U/L (30-120); ALT (SGPT) 46 U/L (10-68); BILIRUBIN - TOTAL 0.95 mg/dL (0.2-1.3); CALC OSMOLALITY 293 mosm/kg (275-300); CALCIUM 8.8 mg/dL (8.5-10.1); CARBON DIOXIDE 33.7 mmol/L (21.0-32.0); CHLORIDE - SERUM 105 mmol/L (98-107); GLUCOSE 211 mg/dL (74-106); LDH 215 U/L (85-227); POTASSIUM - SERUM 4.4 mmol/L (3.5-5.1); PRO BNP 165 pg/mL (0-450); PROTEIN - SERUM 6.7 g/dL (6.4-8.2); SODIUM 141 mmol/L (136-145); UREA NITROGEN 32 mg/dL (7-18); eGFR NON AFRICAN AMERICAN 77 mL/min (90-120)
[2020-10-01 07:36] LABS: APTT 30.3 SECONDS (22.8-39.4)
--- NOTE | 2020-10-01 07:59 | EC ---
PATIENT:BECKY GAVIRIA DATE OF SERVICE: 09/25/20 SEX: M MEDICAL RECORD: [id number] DATE OF : 42 LOCATION:[facility] AGE OF PATIENT: 79 ADMISSION DATE: 09/25/20 REFERRING PHYSICIAN: INTERPRETING PHYSICIAN: FEDERICO LARIOS MD ECHOCARDIOGRAM REPORT ECHO CHARGES 5 ECHO LIMITED Date: 09/29/20 CLINICAL DIAGNOSIS: EDEMA ECHOCARDIOGRAPHIC MEASUREMENTS (adult normal given) AC root (d.<3.7cm) 0 cm LV Septum d (<1.2 cm> 0 cm Valve Excursion 0 cm LV Septum (systole) 0 cm Left Atria (s.<4.0cm> 0 cm LVPW d(<1.2cm) 0 cm RV (d.<2.3cm) 0 cm LVPW (sytole) 0 cm LV diastole(<5.6CM) 0 cm MV E-F(>70mm/sec) 0 cm LV systole 0 cm LVOT Diameter 0 cm MV exc.(>10mm) 0 cm Est.ejection fraction (50-75%) 0 % DOPPLER: LVIT cm/sec A 0 cm/sec E cm/sec LA 0 cm/sec RVSP 26 mmHg LVOT cm/sec AOP1/2T 0 m/s Asc. Ao 0 cm/sec RVOT 0 cm/sec RA 0 cm/sec PA cm/sec AV Gradient Peak 00 mmHg AV Mean 0 mmHg AV Area cm MV Gradient Peak 0 mmHg MV Mean 0 mmHg MV Area 0 cm COMMENTS: Sales Product Specialist: Ewa WOLF Hatchery Man: 3 Dr. Coyle TAPE# Pericardial Effusion N DATE OF SERVICE: This is a limited study includes 2D and color flow only. Grossly LVH appears present. LV internal dimensions are normal. Wall motion normal. EF greater than or equal to 55%. Aortic valve is tricuspid. No significant AI grossly. Left atrium appears normal. Mitral valve appears normal. Trace MR. Right-sided chambers are grossly normal. Trace TR. TRANSINT:[id number] Voice Confirmation ID: [id number] DOCUMENT ID: [id number] ECHOCARDIOGRAM REPORT [id number] BECKY GAVIRIA FEDERICO LARIOS MD at 0759 CC: [id number] DICTATION DATE: 09/29/20 161 TRUCKER HAND: 09/29/201956 ADM IN [facility] [address] [id number]
[2020-10-01 08:11] LABS: INR 1.4 (0.85-1.17); PROTIME 15.9 SECONDS (11.6-15.0)
--- NOTE | 2020-10-01 08:17 | NUR ---
0740 CONSENT SIGNED FOR THOROCENTHESIS NOTIFIED IR STAFF THAT CONSENT WAS SIGNED PLACED ON NPO STATUS FOR PROCEEDURE THIS AFTERNOON
--- NOTE | 2020-10-01 12:43 | NUR ---
HOLD FOR SURG
[2020-10-01 15:45] LABS: PROTEIN - BODY FLUID 0.7 G/DL
[2020-10-01 16:05] LABS: MACROPHAGES BF 25 %; NEUT - BF 16 %
[2020-10-02] VITALS: BP 117/77
[2020-10-02 04:00] VITALS: BP 123/73
[2020-10-02 06:48] LABS: BASOPHILS 0 % (0-2); EOSINOPHILS 0 % (0-7); HEMATOCRIT 40.3 % (42.0-54.0); HEMOGLOBIN 13.1 g/dL (13.5-17.5); IMMATURE GRANULOCYTES 0.4 % (0-5); LYMPHOCYTE ABS# 0.43 10x3/uL (1.32-3.57); LYMPHOCYTES 4.1 % (15-50); MCH 31.5 pg (26.0-34.0); MCHC 32.5 g/dL (31.0-37.0); MCV 96.9 fL (80.0-100.0); MEAN PLATELET VOLUME 11.6 fL (7.4-10.4); MONOCYTES 6.7 % (2-11); NEUTROPHIL ABS# 9.21 10x3/uL (1.78-5.38); NEUTROPHILS 88.8 % (40-80); PLATELET COUNT 101 10x3/uL (130-400); RBC 4.16 10x6/uL (4.20-6.10); WBC 10.4 10x3/uL (4.8-10.8)
[2020-10-02 07:15] LABS: ALBUMIN 2.4 g/dL (3.4-5.0); ANION GAP 9.1 mmol/L (8-16); BILIRUBIN - TOTAL 1.12 mg/dL (0.2-1.3); CARBON DIOXIDE 33.2 mmol/L (21.0-32.0); CREATININE - SERUM 1.1 mg/dL (0.6-1.3); POTASSIUM - SERUM 4.3 mmol/L (3.5-5.1); PROTEIN - SERUM 6.6 g/dL (6.4-8.2)
--- NOTE | 2020-10-02 08:00 | NUR ---
PATIENT IN BED WITH IV INTACT. NO COMPLAINTS OR SIGNS OF DISTRESS. O2 ON. EYES CLOSED RESTING QUIETLY. CALL DERICK GOMEZ.
[2020-10-02 08:37] VITALS: BP 125/74
--- NOTE | 2020-10-02 10:30 | NUR ---
PATIENT BACK ON DIABETIC DIET. RECIEVED JELLO AND APPLESAUCE. NO COMPLAINTS OR SIGNS OF DISTRESS AT THIS TIME. CALL LIGHT WITHIN REACH.
--- NOTE | 2020-10-02 12:30 | NUR ---
PATIENT SITTING UP IN BED WITH IV INTACT. NO COMPLAINTS OR SIGNS OF DISTRESS. CALL LIGHT WITHIN REACH.
[2020-10-02 12:52] VITALS: BP 124/79
--- NOTE | 2020-10-02 12:52 | NUR ---
Nutrition follow-up: Diet just advanced to consistent CHO Pt reports good appetite; po intake usually 70% average at meals Labs reviewed Wt: 252# +BM I/O not recorded Will continue to provide food choices and honor food preferences within diet restrictions. RDN follow-up: 10/07/20
--- NOTE | 2020-10-02 14:12 | NUR ---
O2 AT 3, PATIENT ABLE TO GET UP TO BEDSIDE BY HIMSELF. PATIENT O2 SAT DROPPED TO 88. HIS O2 SAT TIANA UP TO 92, PATIENT STOOD UP AT BEDSIDE WITH WALKER WITH JUST CGA. PATIENT'S O2 SAT DROPPED TO 84. PATIENT STOOD FOR ABOUT A MINUTE AND SAT BACK DOWN. O2 SAT TOOK A FEW MINUTES TO COME BACK UP TO 90.
[2020-10-02 15:55] VITALS: BP 114/70
--- NOTE | 2020-10-02 18:45 | NUR ---
PATIENT IN BED WITH NO COMPLAINTS AT THIS TIME. ASKED PATIENT IF HE REFUSES SCDS. STATED HE DIDNT WANT THEM THAT HE HAS A SHOT HE CAN TAKE. EDUCATED ABOUT BLOOD CLOTS. FAMILY AT BEDSIDE. CALL LIGHT WITHIN REACH.
[2020-10-02 20:07] LABS: ACID FAST SMEAR Negative (()); AFB SPECIMEN PROCESSING Not Indicated (())
--- NOTE | 2020-10-03 | NUR ---
PT REPORTS BIPAP FEELS LIKE IS IT PUSHING TOO MUCH AIR. RT CALLED AND NOTIFIED, CTM.
--- NOTE | 2020-10-03 00:06 | NUR ---
PATIENT STATED THAT THERE SEEMED TO BE TOO MUCH PRESSURE. ADUSTED SETTINGS. DECREASED PRESSURES TO 12/5. PATIENT APPEARS TO BE TOLERATING WELL.
--- NOTE | 2020-10-03 04:19 | NUR ---
I have reviewed this patient and I concur with the Shift Assessment completed by the Licensed Practical Nurse today this shift.
[2020-10-03 06:18] LABS: BASOPHILS 0 % (0-2); EOSINOPHILS 0 % (0-7); HEMATOCRIT 41.9 % (42.0-54.0); IMMATURE GRANULOCYTES 0.5 % (0-5); LYMPHOCYTE ABS# 0.44 10x3/uL (1.32-3.57); LYMPHOCYTES 3.4 % (15-50); MCHC 33.4 g/dL (31.0-37.0); MCV 95.9 fL (80.0-100.0); MEAN PLATELET VOLUME 11.5 fL (7.4-10.4); NEUTROPHIL ABS# 11.83 10x3/uL (1.78-5.38); NEUTROPHILS 90.1 % (40-80); PLATELET COUNT 90 10x3/uL (130-400); RBC 4.37 10x6/uL (4.20-6.10); RDW 13.9 % (11.5-14.5)
[2020-10-03 06:33] LABS: WBC 13.1 10x3/uL (4.8-10.8)
[2020-10-03 06:48] LABS: ALBUMIN 2.6 g/dL (3.4-5.0); ALKALINE PHOSPHATASE 87 U/L (30-120); ALT (SGPT) 72 U/L (10-68); CALC OSMOLALITY 292 mosm/kg (275-300); CALCIUM 8.9 mg/dL (8.5-10.1); CARBON DIOXIDE 34.9 mmol/L (21.0-32.0); CHLORIDE - SERUM 101 mmol/L (98-107); GLUCOSE 224 mg/dL (74-106); POTASSIUM - SERUM 4.7 mmol/L (3.5-5.1); PROTEIN - SERUM 6.7 g/dL (6.4-8.2); SODIUM 139 mmol/L (136-145); UREA NITROGEN 35 mg/dL (7-18); eGFR NON AFRICAN AMERICAN 77 mL/min (90-120)
[2020-10-03 07:42] LABS: PLATELET ESTIMATE DECREASED
[2020-10-03 09:55] VITALS: BP 122/83
--- NOTE | 2020-10-03 10:23 | NUR ---
DIFFICULTY WITH BREATHING TODAY, O2 AT 6L PER NC, URINAL AT BEDSIDE, IV INFUSING PER R WRIST, CONT TO MONITOR SATS
[2020-10-03 12:56] VITALS: BP 128/78
[2020-10-03 18:16] VITALS: BP 118/85
[2020-10-03 19:10] VITALS: Ht 188 cm; Wt 114.3 kg
--- NOTE | 2020-10-03 19:58 | NUR ---
PATIENT RESTING IN BED WITH NO S/S OF DISTRESS AND DENIES NEEDS AT THIS TIME. BED IN LOWEST POSITION AND CALL LIGHT IN REACH. ENCOURAGED PATIENT TO CALL WITH NEEDS.
[2020-10-03 20:00] VITALS: BP 124/84
--- NOTE | 2020-10-03 22:53 | NUR ---
ADMINISTERED MEDS PER ORDERS. PATIENT KIRSTEN WELL. ENCOURAGED TO CALL WITH NEEDS.
[2020-10-04] VITALS: BP 116/78
[2020-10-04 04:00] VITALS: BP 120/79
[2020-10-04 07:25] LABS: BASOPHILS 0.1 % (0-2); EOSINOPHILS 0 % (0-7); HEMATOCRIT 42.8 % (42.0-54.0); HEMOGLOBIN 14.2 g/dL (13.5-17.5); IMMATURE GRANULOCYTES 0.7 % (0-5); LYMPHOCYTE ABS# 0.54 10x3/uL (1.32-3.57); LYMPHOCYTES 3.1 % (15-50); MCHC 33.2 g/dL (31.0-37.0); MCV 96.4 fL (80.0-100.0); MEAN PLATELET VOLUME 11.1 fL (7.4-10.4); MONOCYTES 5.9 % (2-11); NEUTROPHIL ABS# 15.95 10x3/uL (1.78-5.38); NEUTROPHILS 90.2 % (40-80); RBC 4.44 10x6/uL (4.20-6.10)
[2020-10-04 07:26] LABS: PLATELET COUNT 112 10x3/uL (130-400); WBC 17.7 10x3/uL (4.8-10.8)
[2020-10-04 07:36] LABS: INR 1.45 (0.85-1.17); PROTIME 16.3 SECONDS (11.6-15.0)
--- NOTE | 2020-10-04 07:52 | NUR ---
RESTING IN BED, NO DISTRESS NOTED, BIPAP ON, EYES CLOSED, CONT TO MONITOR SUGARS
[2020-10-04 08:03] LABS: ALBUMIN 2.5 g/dL (3.4-5.0); ALKALINE PHOSPHATASE 88 U/L (30-120); ALT (SGPT) 82 U/L (10-68); BILIRUBIN - TOTAL 1.87 mg/dL (0.2-1.3); CALC OSMOLALITY 295 mosm/kg (275-300); CALCIUM 9.2 mg/dL (8.5-10.1); CARBON DIOXIDE 37.6 mmol/L (21.0-32.0); CHLORIDE - SERUM 102 mmol/L (98-107); GLUCOSE 235 mg/dL (74-106); POTASSIUM - SERUM 4.7 mmol/L (3.5-5.1); SODIUM 140 mmol/L (136-145); UREA NITROGEN 39 mg/dL (7-18); eGFR NON AFRICAN AMERICAN 77 mL/min (90-120)
[2020-10-04 09:31] VITALS: BP 137/93
--- NOTE | 2020-10-04 12:07 | NUR ---
PT NPO, WILL HOLD INSULIN, FAMILY N ROOM
[2020-10-04 13:31] VITALS: BP 127/85
--- NOTE | 2020-10-04 15:46 | NUR ---
EKG AND PREOP MEDS GIVEN, AWAITING SURGERY
--- NOTE | 2020-10-04 16:16 | NUR ---
TAKEN TO SURGERY PER BED
--- NOTE | 2020-10-04 16:25 | NUR ---
1530-PT RESTING IN BED WITH EYES CLOSED ON BIPAP WITH O2 SAT OF 96%. REMOVED BIPAP AND PLACED PATIENT ON FACE MASK WITH PORTABLE O2 @ 15L. PORTABLE O2 SAT MONITOR USED FOR TRANSFER WITH O2 SAT OF 98 FOR TRANSPORT TO OR. PATIENT TAKEN DIRECTLY INTO OR #[address] ASSIST. NOTED, ABRILRN
[2020-10-04 17:33] VITALS: BP 124/86
--- NOTE | 2020-10-04 17:34 | NUR ---
RETURNED TO UNIT PER BED, DRAIN TO R SIDE, DRESSING DRY AND INTACT, IV TO RFA CONT, FAMILY IN ROOM, PT SLEEPING
--- NOTE | 2020-10-04 19:00 | NUR ---
BEDSIDE REPORT RECEIVED AND CARE OF PT ASSUMED. PT LYING IN LOW DYSON'S POSITION VISITING WITH SPOUSE. OW IN USE VIA NC AT 4L. PLUEREX DRAIN CAPPED...LEAKING SOME FLUID FROM AROUND CAP. IV TO RIGHT FA PATENT WITH NS INFUSING AT 30 ML/HR. WILL MONITOR FOR NEEDS.
[2020-10-04 20:00] VITALS: BP 125/73
--- NOTE | 2020-10-04 20:41 | NUR ---
HS MEDICATIONS GIVEN. FSBS 226...HELD SLIDING SCALE PO INTAKE DECREASED THIS PM, PER FAMILY. PT ALSO DECLINED MIRALAX THIS DOSE.
--- NOTE | 2020-10-04 21:00 | NUR ---
CHANGED ALL BEDDING AND BEDPAD DUE TO LEAKAGE OF DRAIN. PLACED EXTRA BEDPAD FOR FUTURE DRAINAGE.
[2020-10-05 04:00] VITALS: BP 122/80
--- NOTE | 2020-10-05 05:55 | NUR ---
CHANGED LINENS AND GOWN DUE TO DRAIN LEAKAGE. POSITIONED FOR COMFORT.
[2020-10-05 07:19] LABS: ALBUMIN 2.4 g/dL (3.4-5.0); ANION GAP 7.3 mmol/L (8-16); BILIRUBIN - TOTAL 2.15 mg/dL (0.2-1.3); CARBON DIOXIDE 34.5 mmol/L (21.0-32.0); CREATININE - SERUM 1.1 mg/dL (0.6-1.3); POTASSIUM - SERUM 4.8 mmol/L (3.5-5.1); PROTEIN - SERUM 6.6 g/dL (6.4-8.2)
[2020-10-05 07:35] LABS: BASOPHILS 0.1 % (0-2); EOSINOPHILS 0 % (0-7); HEMATOCRIT 42.1 % (42.0-54.0); HEMOGLOBIN 14.2 g/dL (13.5-17.5); IMMATURE GRANULOCYTES 0.3 % (0-5); LYMPHOCYTE ABS# 1.12 10x3/uL (1.32-3.57); LYMPHOCYTES 7.5 % (15-50); MCH 32.6 pg (26.0-34.0); MCHC 33.7 g/dL (31.0-37.0); MCV 96.6 fL (80.0-100.0); MEAN PLATELET VOLUME 12.3 fL (7.4-10.4); MONOCYTES 2.9 % (2-11); NEUTROPHIL ABS# 13.32 10x3/uL (1.78-5.38); NEUTROPHILS 89.2 % (40-80); RBC 4.36 10x6/uL (4.20-6.10); RDW 13.7 % (11.5-14.5); WBC 14.9 10x3/uL (4.8-10.8)
[2020-10-05 07:38] LABS: PLATELET COUNT 85 10x3/uL (130-400); PLATELET ESTIMATE DECREASED
--- NOTE | 2020-10-05 08:16 | NUR ---
ROUSES TO VERBAL STIMULATION. ORIENTED X3. NO C/O AT THIS TIME. AT BEDSIDE. LUNGS ARE SLIGHTLY DIMINISHED ON LEFT SIDE. NO CHOUGH NOTED. SKIN IS INTACT WITHOUT REDNESS. IV TO RIGHT FOREARM IS PATENT WITHOUT REDNESS AT INSERTION SITE. DENIES NEEDS. O2 SAT AT 96% ON 4L. NO NEEDS NOTED.
--- NOTE | 2020-10-05 08:20 | OP ---
PATIENT NAME: BECKY GAVIRIA MEDICAL RECORD: [id number] :44 LOCATION:D[facility] ADMISSION DATE:09/25/20 SURGEON: CLAUDE TURNER MD DATE OF OPERATION: 10/04/2020 PREOPERATIVE DIAGNOSIS: Recurrent large right pleural effusion following thoracentesis. POSTOPERATIVE DIAGNOSIS: Recurrent large right pleural effusion following thoracentesis. PROCEDURES: Placement of right PleurX catheter. SURGEON: Claude Turner MD TILE INSPECTOR: None. BLOOD LOSS: Minimal. ANESTHESIA: General. COMPLICATIONS: None. The risks, possible complications, and alternatives of the procedure were explained to the patient. He elects to proceed. We have elected not to proceed with a TIPS procedure on this patient as he has an elevated ammonia. OPERATIVE COURSE: The patient was conveyed to the operating room electively on 10/04/2020. General anesthesia was induced by the anesthesia staff. The right chest was sterilely prepped and draped. Under ultrasonographic guidance, I identified the pleural effusion. An incision was accomplished over a rib in the midaxillary line. A counterincision was accomplished anterior and inferior to this. Through the counter incision, I tunneled the PleurX catheter and buried the cuff in the subcutaneous tissues. Through the main incision, I accessed the right pleural space with an Angiocath on the first try. Through the Angiocath, a guidewire was advanced. Over the guidewire, a 12-Maori dilator was advanced. This dilator was removed over the wire. A dilator introducer was advanced. The dilator and wire were removed. Through the introducer, I advanced the PleurX catheter. The peel-away introducer was then peeled away. I then pulled on the PleurX catheter to seat the cuff in the subcutaneous tissues. The posterior incision was closed in one layer with multiple interrupted 3-0 Vicryls for the dermis. The PleurX catheter was attached to suction. The PleurX tubing was sutured to the underlying skin with a nylon suture. There was some bleeding from some of the needle stick sites likely due to the patient's Lovenox use. Fibrillar was applied. A sterile dressing was then applied. A total of 2000 cc of pleural fluid came out through the PleurX catheter. We then took it off suction and put a cap on the end of the PleurX catheter which is okay to use. TRANSINT:[id number] Voice Confirmation ID: [id number] DOCUMENT ID: [id number] OPERATIVE REPORT [id number] BECKY GAVIRIA, CLAUDE MUNOZ at 0820 CC: [id number] DICTATION DATE: 10/04/20 1705 HOSPITAL PRODUCT SPECIALIST: 10/05/20 0041 ADM IN [place] [id number] [place] [address]
[2020-10-05 09:11] VITALS: BP 126/82
[2020-10-05 11:09] LABS: FUNGUS STAIN Final report (())
[2020-10-05 12:58] VITALS: BP 122/79
--- NOTE | 2020-10-05 16:09 | NUR ---
PATIENT ON HOLD PER OSVALDO SCHULER.
[2020-10-05 18:22] VITALS: BP 134/76
[2020-10-05 20:21] VITALS: BP 132/85
--- NOTE | 2020-10-06 03:54 | NUR ---
PATIENT DENIES PAIN, HE HAS BEEN RESTING IN BED WITH HIS EYES CLOSED, HE HAS TOLERATED THE PLEUR X DRAIN BEING EMPTIED THIS SHIFT.
[2020-10-06 04:30] VITALS: BP 137/77
[2020-10-06 06:46] LABS: ALBUMIN 2.4 g/dL (3.4-5.0); ANION GAP 6.1 mmol/L (8-16); BILIRUBIN - TOTAL 2.57 mg/dL (0.2-1.3); CALCIUM 9.1 mg/dL (8.5-10.1); CARBON DIOXIDE 36.1 mmol/L (21.0-32.0); CREATININE - SERUM 1.1 mg/dL (0.6-1.3); POTASSIUM - SERUM 5.2 mmol/L (3.5-5.1); PROTEIN - SERUM 6.6 g/dL (6.4-8.2)
[2020-10-06 06:52] LABS: WBC 21.9 10x3/uL (4.8-10.8)
[2020-10-06 06:53] LABS: HEMATOCRIT 42.7 % (42.0-54.0); HEMOGLOBIN 14.5 g/dL (13.5-17.5); LYMPHOCYTE ABS# 1.59 10x3/uL (1.32-3.57); MCH 32.6 pg (26.0-34.0); PLATELET COUNT 104 10x3/uL (130-400); RBC 4.45 10x6/uL (4.20-6.10); RDW 13.9 % (11.5-14.5)
[2020-10-06 07:35] LABS: LYMPHOCYTES 8 % (15-50); MONOCYTES 5 % (2-11); NEUTROPHILS 87 % (40-80); PLATELET ESTIMATE DECREASED
--- NOTE | 2020-10-06 07:48 | NUR ---
RECIEVED BEDSIDE REPORT. AROUSES TO VOICE. DENIES NEEDS AT THIS TIME. BED LOW POSITION, CALL LIGHT IN REACH. 250 ML REMOVED FROM PLEUREX CATHETER. WILL CONTINUE TO MONITOR.
[2020-10-06 08:38] VITALS: BP 143/71
[2020-10-06 12:30] VITALS: BP 134/87
--- NOTE | 2020-10-06 13:00 | NUR ---
DRAINED PLUREX CATHETER. 600 ML OUTPUT.
--- NOTE | 2020-10-06 13:22 | NUR ---
Nutrition reassessment: Diet order: Consistent CHO PO Intake ~50% of some meals; pt has also been NPO for several meals for procedure. Labs reviewed; Glucose elevated, may be due to Solumedrol ordered Wt: 252#; no new wt since admit +BM Estimated needs remain the same as reassessment on 09/29/20 Nutrition diagnosis: Inadequate oral intake R/T scheduled procedures with NPO order and noted poor po intake at meals AEB the same. Nutrition goals: - PO intake will increase to =/> 75% of meals, snacks - Meet est fluid needs without fluid overload - Stable dry wt Interventions: Will continue to provide food choices with selective menus and honor food preferences within diet restrictions. Will offer and encourage Glucerna Shake for increased kcal, protein intake. Recommendations: Pt may benefit from an appetite stimulant if physician and care team agree. RDN will follow-up on progress toward nutrition goals: 10/08/20
[2020-10-06 16:33] VITALS: BP 126/84
[2020-10-06 20:23] VITALS: BP 129/79
--- NOTE | 2020-10-07 03:15 | NUR ---
PATIENT DENIES PAIN, HE TOLERATES DRAINING THE PLEUR X DRAIN, HE APPEARS TO BE RESTING WELL THROUGH THE NIGHT, HES CURRENTLY RESTING IN BED WITH HIS EYES CLOSED.
[2020-10-07 04:30] VITALS: BP 132/74
[2020-10-07 06:51] LABS: HEMATOCRIT 43.3 % (42.0-54.0); HEMOGLOBIN 14.5 g/dL (13.5-17.5); LYMPHOCYTE ABS# 0.71 10x3/uL (1.32-3.57); MCH 32.2 pg (26.0-34.0); MCHC 33.5 g/dL (31.0-37.0); MCV 96.2 fL (80.0-100.0); NEUTROPHIL ABS# 19.98 10x3/uL (1.78-5.38); PLATELET COUNT 116 10x3/uL (130-400); RDW 13.9 % (11.5-14.5); WBC 22.4 10x3/uL (4.8-10.8)
[2020-10-07 06:57] LABS: LYMPHOCYTES 4 % (15-50); MONOCYTES 8 % (2-11); NEUTROPHILS 86 % (40-80); PLATELET ESTIMATE DECREASED
[2020-10-07 07:20] LABS: ALBUMIN 2.4 g/dL (3.4-5.0); ALKALINE PHOSPHATASE 93 U/L (30-120); ALT (SGPT) 84 U/L (10-68); BILIRUBIN - TOTAL 2.68 mg/dL (0.2-1.3); CALC OSMOLALITY 290 mosm/kg (275-300); CALCIUM 9.3 mg/dL (8.5-10.1); CARBON DIOXIDE 37.4 mmol/L (21.0-32.0); CHLORIDE - SERUM 98 mmol/L (98-107); GLUCOSE 263 mg/dL (74-106); POTASSIUM - SERUM 5.4 mmol/L (3.5-5.1); PROTEIN - SERUM 6.8 g/dL (6.4-8.2); SODIUM 136 mmol/L (136-145); UREA NITROGEN 40 mg/dL (7-18); eGFR NON AFRICAN AMERICAN 77 mL/min (90-120)
[2020-10-07 08:15] VITALS: BP 130/81
--- NOTE | 2020-10-07 10:54 | NUR ---
resting in bed, no distress noted, o2 per nc, family in room, cont to monitor sugars and weakness, iv per rfa, PLEUREX DRAIN TO R SIDE DRESSING CLEAN AND DRY, DRAINED THIS AM OF 300CC
--- NOTE | 2020-10-07 12:00 | NUR ---
PLEUREX DRAINAGE BOTTLE USED FOR COLLECTION OF 400CC
[2020-10-07 13:00] VITALS: BP 109/67
[2020-10-07 14:26] LABS: BILIRUBIN NEGATIVE (NEGATIVE); KETONE NEGATIVE (NEGATIVE); NITRITE NEGATIVE (NEGATIVE); UROBILINOGEN NORMAL mg/dL (< 2)
[2020-10-07 16:46] VITALS: BP 123/79
--- NOTE | 2020-10-07 18:00 | NUR ---
SLEEPY TODAY, ENC MEALS, MONITOR SUGARS, CONT TO MONITOR AMMONIA
--- NOTE | 2020-10-07 18:16 | NUR ---
DRAINED 350CC FROM PLEURX DRAIN, PINKISH IN COLOR
[2020-10-07 20:00] VITALS: BP 113/73
--- NOTE | 2020-10-08 03:36 | NUR ---
PATIENT DENIES PAIN HAS BEEN RESTING WITH HIS EYES CLOSED MOST OF THE SHIFT, HE IS ALERT AND ORIENTED, VOICED NO CONCERNS.
[2020-10-08 04:00] VITALS: BP 116/75
[2020-10-08 07:25] LABS: BASOPHILS 0 % (0-2); EOSINOPHILS 0 % (0-7); HEMATOCRIT 44.6 % (42.0-54.0); IMMATURE GRANULOCYTES 0.6 % (0-5); LYMPHOCYTE ABS# 0.59 10x3/uL (1.32-3.57); LYMPHOCYTES 2.5 % (15-50); MCH 32.4 pg (26.0-34.0); MCHC 33.6 g/dL (31.0-37.0); MCV 96.3 fL (80.0-100.0); MEAN PLATELET VOLUME 11.7 fL (7.4-10.4); MONOCYTES 3.5 % (2-11); NEUTROPHIL ABS# 21.67 10x3/uL (1.78-5.38); NEUTROPHILS 93.4 % (40-80); PLATELET COUNT 123 10x3/uL (130-400); RBC 4.63 10x6/uL (4.20-6.10); RDW 13.8 % (11.5-14.5); WBC 23.2 10x3/uL (4.8-10.8)
--- NOTE | 2020-10-08 07:30 | NUR ---
REC'D IN BED WITH EYES CLOSED EASILY TO AROUSED WHEN NAME IS CALLED. RESP EVEN AND UNLABORED WITH NO DISTRESS NOTED. CAN MAKE SOME NEEDS AND WANTS KNOWN. DENIES ANY PAIN OR DISCOMFORT NOTED OR VOICED. ASSESSMENT COMPLETED. C/L IN REACH AT BEDSIDE.
[2020-10-08 07:55] LABS: ALBUMIN 2.4 g/dL (3.4-5.0); ALKALINE PHOSPHATASE 94 U/L (30-120); ALT (SGPT) 88 U/L (10-68); BILIRUBIN - TOTAL 2.68 mg/dL (0.2-1.3); CALC OSMOLALITY 290 mosm/kg (275-300); CALCIUM 9.1 mg/dL (8.5-10.1); CARBON DIOXIDE 35.5 mmol/L (21.0-32.0); CHLORIDE - SERUM 98 mmol/L (98-107); GLUCOSE 254 mg/dL (74-106); POTASSIUM - SERUM 5.6 mmol/L (3.5-5.1); PROTEIN - SERUM 6.7 g/dL (6.4-8.2); SODIUM 136 mmol/L (136-145); UREA NITROGEN 40 mg/dL (7-18); eGFR NON AFRICAN AMERICAN 77 mL/min (90-120)
[2020-10-08 08:56] VITALS: BP 130/87
--- NOTE | 2020-10-08 10:07 | NUR ---
Nutrition follow-up: Diet order: consistent CHO PO intake ~30% average of meals Labs reviewed Wt: 252# +BM Pleurx cath drain Pt with - fluid balance most days PO intake continues to be poor most days. Recommendations: RDN will order Glucerna Shake with meals to increase kcal, protein intake Appetite stimulant Follow-up: 10/12/20
[2020-10-08 12:58] VITALS: BP 119/88
--- NOTE | 2020-10-08 13:03 | NUR ---
I have reviewed this patient and I concur with the Shift Assessment completed by the Licensed Practical Nurse today this shift.
--- NOTE | 2020-10-08 14:07 | NUR ---
DRAIN 700ML FROM PLUREX DRAIN AT THIS TIME. TOLERATED WELL NO C/O NOTED OR VOICED. C/L IN REACH AT BEDSIDE.
--- NOTE | 2020-10-08 16:38 | NUR ---
DR. TURNER HERE AND DRAIN PLUREX DRAIN WITH 400ML DRAINED AT THIS TIME. C/L IN REACH A BEDSIDE.
[2020-10-08 16:55] VITALS: BP 118/85
[2020-10-08 20:00] VITALS: BP 117/81
[2020-10-09] VITALS: BP 113/80; BP 126/85
[2020-10-09 06:54] LABS: HEMATOCRIT 46.8 % (42.0-54.0); LYMPHOCYTE ABS# 1.54 10x3/uL (1.32-3.57); MCH 32.7 pg (26.0-34.0); MCHC 34.2 g/dL (31.0-37.0); MCV 95.5 fL (80.0-100.0); MEAN PLATELET VOLUME 11.9 fL (7.4-10.4); NEUTROPHIL ABS# 26.36 10x3/uL (1.78-5.38); PLATELET COUNT 168 10x3/uL (130-400); WBC 29.3 10x3/uL (4.8-10.8)
[2020-10-09 06:56] LABS: ALBUMIN 2.5 g/dL (3.4-5.0); ANION GAP 7.3 mmol/L (8-16); BILIRUBIN - TOTAL 2.91 mg/dL (0.2-1.3); CARBON DIOXIDE 33.8 mmol/L (21.0-32.0); CREATININE - SERUM 1.1 mg/dL (0.6-1.3); POTASSIUM - SERUM 5.1 mmol/L (3.5-5.1)
--- NOTE | 2020-10-09 07:22 | NUR ---
DRAINED PLEUREX FOR 700ML THIS AM. DRESSING CDI.
--- NOTE | 2020-10-09 08:24 | NUR ---
plurex drained at this time with 100 ml out. at bedside. c/l in reac
[2020-10-09 09:31] VITALS: BP 126/94
[2020-10-09 09:41] LABS: LYMPHOCYTES 2 % (15-50); MONOCYTES 2 % (2-11); NEUTROPHILS 89 % (40-80); PLATELET ESTIMATE NORMAL
[2020-10-09 09:42] LABS: ANISOCYTOSIS OCC
[2020-10-09 11:23] LABS: CKMB 1.2 U/L (0.0-3.6); CREATINE KINASE 34 UL (21-232); TROPONIN-I 0.024 ng/mL (0.000-0.060)
--- NOTE | 2020-10-09 13:00 | NUR ---
DRAINED PLUREX DRAIN WITH 150ML NOTED AT THIS TIME. AND C/L IN REACH AT BEDSIDE.
[2020-10-09 13:19] VITALS: BP 109/73
--- NOTE | 2020-10-09 14:57 | NUR ---
DR. ULRICH CALLED AND AND SPOKE WITH THIS NURSE TO ENSURE THAT DR. TURNER WAS AWARE OF PT PNEUMOTHORAX HAS NOT IMPROVED. THIS NURSE INFORMED DR. ULRICH THAT DR. TURNER AND HIS FINISHED CLOTH CHECKER ARE BOTH AWARE.
--- NOTE | 2020-10-09 14:59 | NUR ---
REC'D IN BED VERY HARD TO AROUSED WHEN NAME WAS CALLED EVEN WITH TACTILE STIMULI. THEN WHEN HE OPEN HIS EYES DOZE RIGHT BACK TO SLEEP. RESP EVEN AND UNLABORED. NO C/O NOTED AT THIS TIME. ASSESSMENT COMPLETED. C/L IN REACH AT BEDSIDE.
[2020-10-09 17:25] VITALS: BP 107/77
--- NOTE | 2020-10-09 18:02 | NUR ---
I have reviewed this patient and I concur with the Shift Assessment completed by the Licensed Practical Nurse today this shift.
--- NOTE | 2020-10-09 23:08 | NUR ---
PATIENT DIFFICULT TO AROUSE. UNABLE TO TAKE PO MEDS AT THIS TIME. PATIENT INCONTINENT. DAUGHTER AND AT BEDSIDE. WILL CONTINUE TO MONITOR.
--- NOTE | 2020-10-10 02:54 | NUR ---
DRAINED PLEUREX TO RIGHT CHEST, RECIEVED 150ML OF DARK YELLOW FLUID.
[2020-10-10 06:24] VITALS: BP 130/69
--- NOTE | 2020-10-10 07:04 | NUR ---
PATIENT STILL VERY LETHARGIC. UNABLE TO GIVE PO MEDS.
[2020-10-10 07:13] LABS: ALBUMIN 2.5 g/dL (3.4-5.0); ANION GAP 8.4 mmol/L (8-16); BILIRUBIN - TOTAL 4.47 mg/dL (0.2-1.3); CALCIUM 9.8 mg/dL (8.5-10.1); CARBON DIOXIDE 35.2 mmol/L (21.0-32.0); CREATININE - SERUM 1.1 mg/dL (0.6-1.3); POTASSIUM - SERUM 5.6 mmol/L (3.5-5.1); PROTEIN - SERUM 6.8 g/dL (6.4-8.2)
[2020-10-10 07:19] LABS: BASOPHILS 0.1 % (0-2); EOSINOPHILS 0 % (0-7); HEMATOCRIT 49.2 % (42.0-54.0); HEMOGLOBIN 16.9 g/dL (13.5-17.5); IMMATURE GRANULOCYTES 0.4 % (0-5); LYMPHOCYTE ABS# 1.14 10x3/uL (1.32-3.57); LYMPHOCYTES 4.3 % (15-50); MCH 32.9 pg (26.0-34.0); MCHC 34.3 g/dL (31.0-37.0); MCV 95.9 fL (80.0-100.0); MEAN PLATELET VOLUME 12.4 fL (7.4-10.4); MONOCYTES 3.8 % (2-11); NEUTROPHILS 91.4 % (40-80); PLATELET COUNT 151 10x3/uL (130-400); RBC 5.13 10x6/uL (4.20-6.10); RDW 14.3 % (11.5-14.5); WBC 26.7 10x3/uL (4.8-10.8)
--- NOTE | 2020-10-10 08:00 | NUR ---
ASSESSMENT PER FLOW SHEET. VERY LETHARGIC TODAY. PATIENT MOVES LOWER LEGS OCCASIONALLY,BUT WILL NOT WAKE.FALL PREVENTION WITH PHAN
[2020-10-10 09:07] VITALS: BP 114/91
--- NOTE | 2020-10-10 11:05 | NUR ---
DOBHOFF TUBE PLACE VIA R NARE. AWAITING X RAY FOR PLACEMENT.
[2020-10-10 14:06] VITALS: BP 126/74
--- NOTE | 2020-10-10 14:20 | NUR ---
SPOKE WITH OSVALDO ELENA IN CVICU. SHE WILL SEND NURSE BACK TO [facility].
--- NOTE | 2020-10-10 18:28 | NUR ---
STILL LETHARGIC. CONDOM CATH PLACED ON PATIENT. MEDS PER DHT.325 CC OF STRAW COLORED DRAINAGE FROM PLEUEX.REMAINS WITHOUT DISTRESS.
[2020-10-11 00:40] VITALS: BP 98/53
--- NOTE | 2020-10-11 03:40 | NUR ---
NOTIFIED BY TELEMETRY THAT PATIENT'S HR WAS DROPPING. PATIENT HAD 3 MORE AGONAL BREATHS, THEN . NOTIFIED [employer] MANUFACTURING CONSULTANT, ELECTRONIC ASSEMBLER GROUP LEADER, CHARGE NURSE, DAUGHTER. PRONOUNCED BY ER MD. POSTMORTEM CARE GIVEN. NOT AN ORGAN DONATION CANDIDATE PER CHANEY. NOTIFIED [facility] IN [place], [place] PER FAMILY REQUEST. AWAITING RETURN CALL WITH ETA. FAMILY AT BEDSIDE.
--- NOTE | 2020-10-12 14:51 | MORECARE ---
CASE MANAGEMENT DISCHARGE SUMMARY PATIENT: BECKY GAVIRIA UNIT: [id number] ADM DATE: 09/25/20 AGE: 79 : 42 SEX: M ROOM/BED: D.2219 AUTHOR: EHSAN GARCIA PHYSICIAN: REFERRING PHYSICIAN: LUCERO SINGER DO DATE OF SERVICE: 10/12/20 Case Management Discharge Planning Summary COMMENTS ENTERED DATE: 09/29/20 8:15 CT COMMENT TYPE: Discharge Planning REVIEWER: Leena HUGHES SPOKE WITH ME YESTERDAY ABOUT GETTING A TRILIOGY FOR THE PATIENT, I HAVE CONTACTED [facility] THE PATIENT'S DME AND FAXED CLINCIALS OVER TO THEM TO START THE PROCESS OF GETTING THAT APPROVED. I SPOKE WITH [place]O RYAN REVIEW SUMMARY ANTICIPATED D/C DATE: EXPECTED LOS : 0 CASE STATUS: DCP Initiated INITIAL REVIEW: 09/25/2020 INITIAL REVIEWER: Leena Garg FINAL DISCHARGE DISPOSITION: 20 : FINAL REVIEWER: Leena Garg FINAL REVIEW DATE: 10/12/2020 DCP [facility] Questions & Answers QUESTION: ANSWER : PATIENT: BECKY GAVIRIA ENCOUNTER: [id number] MEDICAL RECORD#: [id number] ADMISSION DATE: 09/25/2020 DISCHARGE DATE: 10/11/2020 ATTENDING MD: LUCERO IQBAL : AGE: 79 MARITAL STATUS: M DC PLAN ID: [id number] FACILITY: [facility] PRINTED ON: 10/12/20 14:51 CT All edits/amendments must be made on the electronic document DICTATION DATE: 10/12/201450 TRIMMING INSPECTOR: DM 10/12/201450 RPT#: [id number] DC DATE:10/11/20 STATUS: DIS IN [facility] [address] [place] [address] END OF REPORT
== END 2020-10-11 03:30 | DRG 189 ==
LOC: D.ER 10:18 → D.MS 12:08
PROVIDERS: Emergency Medicine; Family Medicine; Internal Medicine Pulmonary Disease; ADMIT Family Medicine; ATTEND Family Medicine
PROC: 5A09457 Assistance with Respiratory Ventilation, 24-96 Consecutive Hours, Continuous Positive Airway Pressure (ICD-10-PCS; principal; 2020-09-25)
PROC: 0W993ZZ Drainage of Right Pleural Cavity, Percutaneous Approach (ICD-10-PCS; 2020-09-26)
PROC: 0W993ZZ Drainage of Right Pleural Cavity, Percutaneous Approach (ICD-10-PCS; 2020-10-01)
PROC: 0W9930Z Drainage of Right Pleural Cavity with Drainage Device, Percutaneous Approach (ICD-10-PCS; 2020-10-04)
DX: J96.21 Acute and chronic respiratory failure with hypoxia (principal); J18.9 Pneumonia, unspecified organism; I50.33 Acute on chronic diastolic (congestive) heart failure; G93.41 Metabolic encephalopathy; J90 Pleural effusion, not elsewhere classified; B37.0 Candidal stomatitis; E03.9 Hypothyroidism, unspecified; I11.0 Hypertensive heart disease with heart failure; J84.10 Pulmonary fibrosis, unspecified; M19.90 Unspecified osteoarthritis, unspecified site; M10.9 Gout, unspecified; N40.0 Benign prostatic hyperplasia without lower urinary tract symptoms; I48.91 Unspecified atrial fibrillation; E11.9 Type 2 diabetes mellitus without complications; R53.81 Other malaise; K74.69 Other cirrhosis of liver; J45.909 Unspecified asthma, uncomplicated; J47.9 Bronchiectasis, uncomplicated; T81.82XA Emphysema (subcutaneous) resulting from a procedure, initial encounter; J96.22 Acute and chronic respiratory failure with hypercapnia; E78.5 Hyperlipidemia, unspecified